=== PATIENT | male | born 1980 | race Caucasian/White ===

== ENCOUNTER 2017-01-14 11:21 | Observation (INO) | payer BC, OTHER ==
[2017-01-14] MEDS ORDERED: MORPHINE SULFATE 4 MG INJ IV ONE ×2 (11:49→13:17)
[2017-01-14] MEDS ORDERED: Zofran 4 MG/2 ML VIAL IV ONE (11:49)
[2017-01-14] MEDS ORDERED: Sodium Chloride 0.9% 1000 ML 1,000 ML IV STA ×2 (11:49→13:00)
--- NOTE | 2017-01-14 11:54 | ERPHSYRPT ---
- History of Present Illness Time Seen by Provider: 01/14/17 11:46 Exam Limitations: no limitations Patient Subjective Stated Complaint: Pt states "This has actually been going on for the past two weeks. I am having horrible indigestion and pain in the middle of my stomach. I have not been able to keep anything down and I have not taken any of my medicines." Triage Nursing Assessment: Pt alert and oriented X 3, skin pwd. Pt holding his abdomen, ambulates with a steady upright gait, able to speak in clear full sentences. Physician History: 36-year-old white male with history of high blood pressure, asthma, degenerative disc disease, States he had a headache that 2 weeks ago and then for the past 3 days he's been having epigastric pain states she's been unable to eat anything spitting everything up. No fevers. Past medical history includes high blood pressure, asthma, degenerative disc disease. Past surgical history right hand fracture Timing/Duration: day(s) (3 days) Activities at Onset: none Quality: burning Abdominal Pain Onset Location: epigastric Pain Radiation: no radiation Severity of Pain-Max: moderate Severity of Pain-Current: moderate Modifying Factors: Improves With: nothing Associated Symptoms: headache, nausea, vomiting, No back, No chest pain, No diaphoresis, No diarrhea, No fever/chills, No fatigue, No heartburn, No loss of appetite, No neck pain, No rash, No shortness of breath, No syncope Previous symptoms: no prior history Allergies/Adverse Reactions: NKA Allergy (Verified 06/07/15 12:44) NKA Home Medications: Lisinopril/Hydrochlorothiazide [Lisinopril-Hctz 20-12.5 mg Tab] 1 tab PO DAILY 09/25/13 [History] Omeprazole 20 MG [Prilosec 20 mg] 20 mg PO DAILY 09/25/13 [History] Atenolol mg PO 01/14/17 [History] Hx Tetanus, Diphtheria Vaccination/Date Given: Yes Hx Influenza Vaccination/Date Given: No Hx Pneumococcal Vaccination/Date Given: No Immunizations Up to Date: Yes - Review of Systems Constitutional: No Fever, No Chills Eyes: No Symptoms Ears, Nose, & Throat: No Symptoms Respiratory: No Cough, No Dyspnea Cardiac: No Chest Pain, No Edema, No Syncope Abdominal/Gastrointestinal: Abdominal Pain, Nausea, Vomiting, No Diarrhea, No Constipation, No Hematemesis, No Hematochezia, No Melena, No Dysphagia, No Appetite Changes Genitourinary Symptoms: No Dysuria Musculoskeletal: No Back Pain, No Neck Pain Skin: No Rash Neurological: No Dizziness, No Focal Weakness, No Sensory Changes Psychological: No Symptoms Endocrine: No Symptoms All Other Systems: Reviewed and Negative - Past Medical History Pertinent Past Medical History: Yes Neurological History: No Pertinent History ENT History: No Pertinent History Cardiac History: Hypertension Respiratory History: Asthma Endocrine Medical History: No Pertinent History Musculoskeletal History: Degenerative Disk Disease, Fractures GI Medical History: No Pertinent History History: No Pertinent History Psycho-Social History: Anxiety Male Reproductive Disorders: No Pertinent History Other Medical History: R HAND FX - Past Surgical History Past Surgical History: Yes Neuro Surgical History: No Pertinent History Cardiac: No Pertinent History Respiratory: No Pertinent History Gastrointestinal: Hernia Repair Genitourinary: No Pertinent History Musculoskeletal: Orthopedic Surgery Male Surgical History: No Pertinent History Other Surgical History: R HAND - Social History Smoking Status: Current every day smoker How long have you smoked: 20 years Exposure to second hand smoke: Yes Drug Use: none Patient Lives Alone: No - Nursing Vital Signs Nursing Vital Signs: Initial Vital Signs Temperature 97.9 F 01/14/17 11:38 Pulse Rate 126 H 01/14/17 11:38 Respiratory Rate 18 01/14/17 11:38 Blood Pressure 147/104 01/14/17 11:38 O2 Sat by Pulse Oximetry 98 01/14/17 11:38 Pain Scale Pain Intensity 8 - Physical Exam SpO2: 98 Oxygen Delivery: Room Air - Course Nursing assessment & vital signs reviewed: Yes EKG Interpreted by Me: RATE (110 bpm), Sinus Tach, NORMAL AXIS, Other (EKG: Sinus tachycardia, 1 10 bpm, normal axis, no acute ST or T wave changes) - CT Exams Abdomen/Pelvis CT Interpretation: Discussed w/radiologist (CT abdomen and pelvis with contrast impression: Fatty liver, mild fluid distended jejunum with wall thickening/ enhancement favoring enteritis. Normal appendix. Small fatty left inguinal hernia) Ordered Tests: Active Orders 24 hr Category Date Time Status EKG-ER Only STAT Care 01/14/17 11:49 Active IV Insertion STAT Care 01/14/17 11:49 Active ABDOMEN AND PELVIS W CONTRAST [CT] Stat Exams 01/14/17 13:18 Taken CHEST 1 VIEW (PORTABLE) Stat Exams 01/14/17 11:54 Completed AMYLASE Stat Lab 01/14/17 12:04 Completed CBC W DIFF Stat Lab 01/14/17 12:04 Completed CMP Stat Lab 01/14/17 12:04 Completed LIPASE Stat Lab 01/14/17 12:04 Completed TROPONIN Q3H Lab 01/14/17 12:04 Completed TROPONIN Q3H Lab 01/14/17 15:00 Ordered TROPONIN Q3H Lab 01/14/17 18:00 Ordered TROPONIN Q3H Lab 01/14/17 21:00 Ordered TROPONIN Q3H Lab 01/15/17 00:00 Ordered Medication Summary Discontinued Medications Generic Name Dose Route Start Last Admin Trade Name Freq PRN Reason Stop Dose Admin Sodium Chloride 1,000 mls @ 999 mls/hr 01/14/17 11:49 01/14/17 12:19 Sodium Chloride 0.9% 1000 Ml IV 01/14/17 12:49 999 mls/hr .Q1H1M STA Administration Sodium Chloride Confirm 01/14/17 12:16 Sodium Chloride 0.9% 1000 Ml Administered 01/14/17 12:17 Dose 1,000 mls @ ud .ROUTE .STK-MED ONE Sodium Chloride 1,000 mls @ 999 mls/hr 01/14/17 13:00 01/14/17 13:22 Sodium Chloride 0.9% 1000 Ml IV 01/14/17 14:00 999 mls/hr .Q1H1M STA Administration Sodium Chloride Confirm 01/14/17 13:03 Sodium Chloride 0.9% 1000 Ml Administered 01/14/17 13:04 Dose 1,000 mls @ ud .ROUTE .STK-MED ONE Morphine Sulfate 4 mg 01/14/17 11:49 01/14/17 12:20 Morphine Sulfate 4 Mg Inj IV 01/14/17 11:50 4 mg STAT ONE Administration Morphine Sulfate Confirm 01/14/17 12:16 Morphine Sulfate 4 Mg Inj Administered 01/14/17 12:17 Dose 4 mg .ROUTE .STK-MED ONE Morphine Sulfate 4 mg 01/14/17 13:17 01/14/17 13:21 Morphine Sulfate 4 Mg Inj IV 01/14/17 13:18 4 mg STAT ONE Administration Morphine Sulfate Confirm 01/14/17 13:20 Morphine Sulfate 4 Mg Inj Administered 01/14/17 13:21 Dose 4 mg .ROUTE .STK-MED ONE Ondansetron HCl 4 mg 01/14/17 11:49 01/14/17 12:20 Zofran 4 Mg/2 Ml Vial IV 01/14/17 11:50 4 mg STAT ONE Administration Ondansetron HCl Confirm 01/14/17 12:16 Zofran 4 Mg/2 Ml Vial Administered 01/14/17 12:17 Dose 4 mg .ROUTE .STK-MED ONE Pantoprazole Sodium 40 mg 01/14/17 14:05 Protonix 40 Mg Iv IV 01/14/17 14:06 STAT ONE Lab/Rad Data: Laboratory Result Diagrams 01/14/17 12:04 01/14/17 12:04 Laboratory Results 01/14/17 01/14/17 01/14/17 Range/Units 12:04 12:04 12:04 WBC 16.2 H (4.0-10.5) K/mm3 RBC 5.35 (4.1-5.6) M/mm3 Hgb 16.9 (12.5-18.0) gm/dl Hct 49.2 (42-50) % MCV 92.0 (78-100) fl MCH 31.6 (26-32) pg MCHC 34.3 (32-36) g/dl RDW 13.0 (11.5-14.0) % Plt Count 308 (150-450) K/mm3 MPV 10.2 H (6-9.5) fl Gran % 78.9 H (36.0-66.0) % Lymphocytes % 14.4 L (24.0-44.0) % Monocytes % 6.3 (0.0-12.0) % Eosinophils % 0.2 (0.00-5.0) % Basophils % 0.2 (0.0-0.4) % Basophils # 0.04 (0-0.4) Sodium 135 L (136-145) mEq/L Potassium 3.4 L (3.5-5.1) mEq/L Chloride 97 L (98-107) mEq/L Carbon Dioxide 23.4 (21-32) mEq/L Anion Gap 18.3 H (5-15) MEQ/L BUN 14 (9-20) mg/dL Creatinine 1.01 (0.55-1.30) mg/dl Estimated GFR > 60 ML/MIN Glucose 129 H (70-110) MG/DL Calcium 10.1 (8.5-10.1) mg/dL Total Bilirubin 0.50 (0.2-1.0) mg/dL AST 51 H (15-37) U/L ALT 81 H (12-78) U/L Alkaline Phosphatase 85 (46-116) U/L Troponin I < 0.017 (0.000-0.056) ng/ml Serum Total Protein 8.9 H (6.4-8.2) gm/dL Albumin 4.7 (3.4-5.0) g/dL Amylase 41 (25-115) U/L Lipase 164 (73-393) U/L - Progress Progress: improved Progress Note: 01/14/17 14:23 Case is discussed with Dr. Guzman will place on observation telemetry provide pain medication and antibiotics as well as IV fluids. - Departure Time of Disposition: 14:23 Departure Disposition: Observation (so we got better) Clinical Impression: Epigastric abdominal pain, Dehydration Vomiting Qualifiers: Vomiting type: unspecified Vomiting Intractability: non-intractable Nausea presence: with nausea Qualified Code(s): R11.2 - Nausea with vomiting, unspecified Condition: Fair Critical Care Time: No Referrals: COLT MARQUEZ MD [COURTESY STAFF] -
--- NOTE | 2017-01-14 12:15 | XRAY ---
Indication: Epigastric pain. Comparison: September 25, 2013. Portable apical lordotic chest again demonstrates normal heart, lungs, and bony thorax.
[2017-01-14] MEDS ORDERED: Sodium Chloride 0.9% 1000 ML 1,000 ML ONE ×2 (12:16→13:03)
[2017-01-14] MEDS ORDERED: MORPHINE SULFATE 4 MG INJ ONE ×2 (12:16→13:20)
[2017-01-14] MEDS ORDERED: Zofran 4 MG/2 ML VIAL ONE (12:16)
[2017-01-14 12:21] LABS: BASOPHIL % 0.2 % (0.0-0.4); Eosinophil % 0.2 % (0.00-5.0); Granulocytes % 78.9 % (36.0-66.0); Lymphocytes % 14.4 % (24.0-44.0); Mean Corpuscular Hemoglobin 31.6 pg (26-32); Mean Platelet Volume 10.2 fl (6-9.5); Monocytes % 6.3 % (0.0-12.0); Platelet Count 308 K/mm3 (150-450); Red Blood Count 5.35 M/mm3 (4.1-5.6); White Blood Count 16.2 K/mm3 (4.0-10.5)
[2017-01-14 12:49] LABS: ALBUMIN 4.7 g/dL (3.4-5.0); ALKALINE PHOSPHATASE 85 U/L (46-116); ANION GAP 18.3 MEQ/L (5-15); BLOOD UREA NITROGEN 14 mg/dL (9-20); CHLORIDE 97 mEq/L (98-107); Carbon Dioxide 23.4 mEq/L (21-32); Glucose 129 MG/DL (70-110); LIPASE 164 U/L (73-393); Potassium 3.4 mEq/L (3.5-5.1); SGOT/AST 51 U/L (15-37); SGPT/ALT 81 U/L (12-78); SODIUM 135 mEq/L (136-145); Total Protein 8.9 gm/dL (6.4-8.2)
[2017-01-14] MEDS ORDERED: PROTONIX 40 MG IV IV ONE ×2 (14:05→14:24)
--- NOTE | 2017-01-14 14:31 | XRAY ---
Indication: Nausea and vomiting. Heartburn. Multiple contiguous images obtained through the abdomen and pelvis using 80 cc Isovue 370 contrast only. Comparison: CT renal stone study June 06, 2016. Lung bases are clear. Heart is not enlarged. Noncontrasted stomach and bowel loops appear nonobstructed. Again the left abdomen jejunal bowel loops are mildly fluid distended with wall thickening/enhancement favoring enteritis. Scattered right hemicolon diverticulosis without diverticulitis. Normal appendix. No free fluid/air. Stable fatty liver. There is nonobstructing left lower renal micro-calculus. Remaining liver, gallbladder, pancreas, spleen, adrenal glands, kidneys, ureters, bladder, and aorta appear unremarkable. No pathologic retroperitoneal lymphadenopathy. Osseous structures intact. Interval enlarging moderate size fatty left inguinal hernia. Impression: 1. Again fluid distended jejunum with wall thickening/enhancement. Rule out enteritis. 2. Enlarging fatty left inguinal hernia. 3. Nonobstructing left renal micro-calculus, colonic diverticulosis, and fatty liver. CT DI 22.15
[2017-01-14] MEDS ORDERED: MORPHINE SULFATE 4 MG INJ IV PRN (15:14)
[2017-01-14] MEDS: Sodium Chloride 0.9% 1000 ML 1,000 ML IV SCH (15:24)
[2017-01-14] MEDS: Morphine PCA 1 MG/ML 30 ML IV PRN (17:16)
[2017-01-14] MEDS ORDERED: NON-FORMULARY ITEM (Lisinopril/Hydrochlorothiazide [Lisinopril-Hctz 20-12.5 Mg Tab] 1 TAB) PO SCH (22:00)
[2017-01-14] MEDS: hydroDIURIL 25 MG PO SCH (23:04)
[2017-01-14] MEDS: Zestril 20 MG PO SCH (23:05)
[2017-01-15] MEDS: Zofran 4 MG/2 ML VIAL IV PRN ×2 (00:35→13:35)
[2017-01-15] MEDS: Sodium Chloride 0.9% 1000 ML 1,000 ML IV SCH ×3 (00:46→19:54)
[2017-01-15] MEDS: Morphine PCA 1 MG/ML 30 ML IV PRN ×3 (05:40→17:33)
[2017-01-15 05:52] LABS: BASOPHIL % 0.3 % (0.0-0.4); Eosinophil % 1.1 % (0.00-5.0); Granulocytes % 65.1 % (36.0-66.0); Lymphocytes % 27.5 % (24.0-44.0); Mean Cell Volume 96.1 fl (78-100); Mean Corpuscular Hemoglobin 31.7 pg (26-32); Mean Platelet Volume 9.6 fl (6-9.5); Platelet Count 227 K/mm3 (150-450); Red Blood Count 4.39 M/mm3 (4.1-5.6); Red Cell Distribution Width 13.1 % (11.5-14.0); White Blood Count 10.2 K/mm3 (4.0-10.5)
[2017-01-15 06:11] LABS: ALBUMIN 3.8 g/dL (3.4-5.0); ALKALINE PHOSPHATASE 65 U/L (46-116); ANION GAP 10.6 MEQ/L (5-15); BLOOD UREA NITROGEN 8 mg/dL (9-20); CHLORIDE 103 mEq/L (98-107); Carbon Dioxide 28.5 mEq/L (21-32); Glucose 105 MG/DL (70-110); Potassium 3.6 mEq/L (3.5-5.1); SGOT/AST 32 U/L (15-37); SGPT/ALT 68 U/L (12-78); SODIUM 139 mEq/L (136-145); Total Protein 7.2 gm/dL (6.4-8.2)
--- NOTE | 2017-01-15 08:57 | PCM.HP ---
History of Present Illness - Chief Complaint Chief Complaint: epigastric abdominal pain History of Present Illness: is a 36 year old male pt seen in yesterday for 2-3 d of epigastric burning, 7/10, with vomiting and diarrhea. Also c/o BURT x 2 weeks. Was having lower chest pain radiating to back with palpitations and sob so was admitted through the ER, where EKG was nonacute and troponin was negative. He has not had any diarrhea since admission. His pain is 3/10 currently and he is on morphine [employer]. His pain is worse wiht any po intake. Never had EGD. He has, however, had some chronic stomach issues. He tells me he starts sweating, his head starts hurting, and his stomach starts hurting. He does get flushed as well. - Review of Systems Constitutional: Fever, No Weight Loss Respiratory: Cough (resolved in past few weeks), Short Of Breath Cardiac: Chest Pain Abdominal/Gastrointestinal: Abdominal Pain, Nausea, Vomiting, Diarrhea All Other Systems: Reviewed and Negative Medications & Allergies Home Medications: Home Medication List Lisinopril/Hydrochlorothiazide [Lisinopril-Hctz 20-12.5 mg Tab] 1 tab PO BID [History Confirmed 01/14/17] Omeprazole 20 MG [Prilosec 20 mg] 20 mg PO DAILY 09/25/13 [History Confirmed ] Diazepam [Valium] 10 mg PO TIDPRN 01/14/17 [History Confirmed 01/14/17] Allergies/Adverse Reactions: Allergies Allergy/AdvReac Type Severity Reaction Status Date / Time NKA Allergy Verified 01/14/17 15:13 - Past Medical History Past Medical History: Yes Neurological History: No Pertinent History ENT History: No Pertinent History Cardiac History: Hypertension Respiratory History: No Pertinent History Endocrine Medical History: No Pertinent History Musculoskelatal History: Degenerative Disk Disease, Fractures GI Medical History: No Pertinent History History: No Pertinent History Pyscho-Social History: Anxiety Male Reproductive Disorders: No Pertinent History Comment: R HAND FX - Past Surgical History Past Surgical History: Yes Neuro Surgical History: No Pertinent History Cardiac History: No Pertinent History Respiratory Surgery: No Pertinent History GI Surgical History: Hernia Repair Genitourinary Surgical Hx: No Pertinent History Musculskeletal Surgical Hx: Orthopedic Surgery Male Surgical History: No Pertinent History Other Surgical History: R HAND - Social History Smoking Status: Current every day smoker How long have you smoked: 20 years Exposure to second hand smoke: Yes Alcohol: Occasionally Drug Use: none - Physical Exam Vital Signs: Vital Signs - 24 hr Temp Pulse Resp BP Pulse Ox 01/15/17 08:10 99 01/15/17 07:51 97 01/15/17 07:44 87 L 01/15/17 07:26 98.2 F 104 H 18 120/79 92 L 01/15/17 05:40 95 01/15/17 05:16 95 01/15/17 04:00 97.9 F 104 H 16 144/84 96 01/15/17 01:16 98 01/15/17 00:00 97.8 F 101 H 16 130/77 98 01/14/17 21:16 96 01/14/17 20:00 98.3 F 84 16 121/69 96 01/14/17 15:52 98.2 F 95 H 18 138/88 97 01/14/17 15:32 98.2 F 95 H 18 138/88 97 01/14/17 14:49 98.1 F 102 H 18 142/64 94 L 01/14/17 14:24 98 01/14/17 13:25 106 H 16 148/88 94 L 01/14/17 12:15 120 H 18 118/91 97 01/14/17 11:38 97.9 F 126 H 18 147/104 98 Results - Labs Lab/Micro Results: Lab Results-Last 24 Hours 01/14/17 01/14/17 01/14/17 Range/Units 15:13 18:06 21:15 WBC (4.0-10.5) K/mm3 RBC (4.1-5.6) M/mm3 Hgb (12.5-18.0) gm/dl Hct (42-50) % MCV (78-100) fl MCH (26-32) pg MCHC (32-36) g/dl RDW (11.5-14.0) % Plt Count (150-450) K/mm3 MPV (6-9.5) fl Gran % (36.0-66.0) % Lymphocytes % (24.0-44.0) % Monocytes % (0.0-12.0) % Eosinophils % (0.00-5.0) % Basophils % (0.0-0.4) % Basophils # (0-0.4) Sodium (136-145) mEq/L Potassium (3.5-5.1) mEq/L Chloride (98-107) mEq/L Carbon Dioxide (21-32) mEq/L Anion Gap (5-15) MEQ/L BUN (9-20) mg/dL Creatinine (0.55-1.30) mg/dl Estimated GFR ML/MIN Glucose (70-110) MG/DL Calcium (8.5-10.1) mg/dL Total Bilirubin (0.2-1.0) mg/dL AST (15-37) U/L ALT (12-78) U/L Alkaline Phosphatase (46-116) U/L Troponin I < 0.017 < 0.017 < 0.017 (0.000-0.056) ng/ml Serum Total Protein (6.4-8.2) gm/dL Albumin (3.4-5.0) g/dL 01/15/17 01/15/17 01/15/17 Range/Units 00:30 05:10 05:10 WBC 10.2 (4.0-10.5) K/mm3 RBC 4.39 (4.1-5.6) M/mm3 Hgb 13.9 (12.5-18.0) gm/dl Hct 42.2 (42-50) % MCV 96.1 (78-100) fl MCH 31.7 (26-32) pg MCHC 32.9 (32-36) g/dl RDW 13.1 (11.5-14.0) % Plt Count 227 (150-450) K/mm3 MPV 9.6 H (6-9.5) fl Gran % 65.1 (36.0-66.0) % Lymphocytes % 27.5 (24.0-44.0) % Monocytes % 6.0 (0.0-12.0) % Eosinophils % 1.1 (0.00-5.0) % Basophils % 0.3 (0.0-0.4) % Basophils # 0.03 (0-0.4) Sodium 139 (136-145) mEq/L Potassium 3.6 (3.5-5.1) mEq/L Chloride 103 (98-107) mEq/L Carbon Dioxide 28.5 (21-32) mEq/L Anion Gap 10.6 (5-15) MEQ/L BUN 8 L (9-20) mg/dL Creatinine 0.83 (0.55-1.30) mg/dl Estimated GFR > 60 ML/MIN Glucose 105 (70-110) MG/DL Calcium 8.5 (8.5-10.1) mg/dL Total Bilirubin 0.30 (0.2-1.0) mg/dL AST 32 (15-37) U/L ALT 68 (12-78) U/L Alkaline Phosphatase 65 (46-116) U/L Troponin I < 0.017 (0.000-0.056) ng/ml Serum Total Protein 7.2 (6.4-8.2) gm/dL Albumin 3.8 (3.4-5.0) g/dL - Other Procedures and Tests Respiratory Therapy 01/15/17 07:42 Oxygen NASAL CANNULA 2 lpm Assessment/Plan (1) Epigastric abdominal pain Current Visit: Yes Status: Acute Assessment & Plan: Enteritis on CT. will add carafate QID. Pain is better; if persistent still consider EGD. Code(s): R10.13 - EPIGASTRIC PAIN (2) Vomiting Current Visit: Yes Status: Acute Qualifiers: Vomiting type: unspecified Vomiting Intractability: non-intractable Nausea presence: with nausea Qualified Code(s): R11.2 - Nausea with vomiting, unspecified Code(s): R11.10 - VOMITING, UNSPECIFIED (3) Chest pain Current Visit: Yes Status: Acute Qualifiers: Chest pain type: other chest pain Qualified Code(s): R07.89 - Other chest pain; R07.8 - Other chest pain Assessment & Plan: His mom and dad both had MIs in their 50s - would consider having him get a treadmill test outpatient after his stomach issues resolve. Code(s): R07.9 - CHEST PAIN, UNSPECIFIED (4) Diarrhea Current Visit: Yes Status: Acute Qualifiers: Diarrhea type: unspecified type Qualified Code(s): R19.7 - Diarrhea, unspecified Assessment & Plan: None since admission, but he has not been eating much. Less likely to be carcinoid syndrome, but with his flushing and stomach issues going temporally related, will start 24 hour urine for 5-HIAA. Code(s): R19.7 - DIARRHEA, UNSPECIFIED (5) Insomnia Current Visit: Yes Status: Acute Qualifiers: Insomnia type: primary Qualified Code(s): F51.01 - Primary insomnia Assessment & Plan: add ativan at hs while in hospital. Code(s): G47.00 - INSOMNIA, UNSPECIFIED
[2017-01-15] MEDS: hydroDIURIL 25 MG PO SCH ×2 (09:48→21:49)
[2017-01-15] MEDS: Zestril 20 MG PO SCH ×2 (09:48→21:49)
[2017-01-15] MEDS ORDERED: FLUCELVAX QUAD 2017-2018 SYR IM ONE (10:00)
[2017-01-15] MEDS: Carafate 1 GM PO SCH ×3 (10:56→21:49)
[2017-01-15] MEDS: Ativan 1 MG PO SCH (21:49)
[2017-01-16] MEDS: Sodium Chloride 0.9% 1000 ML 1,000 ML IV SCH ×2 (05:31→17:45)
[2017-01-16] MEDS: Morphine PCA 1 MG/ML 30 ML IV PRN (06:46)
[2017-01-16] MEDS: Carafate 1 GM PO SCH ×4 (08:12→22:43)
--- NOTE | 2017-01-16 09:07 | PCM.DS ---
Discharge Summary Date of Admission: 01/14/17 15:01 Admitting Physician: SVETA NIXON Primary Care Provider: ARIEL MIDDLETON AMEYA Allergies Allergies NKA Allergy (Verified 01/14/17 15:13) [facility] Hospital Summary - Hospital Course Hospital Course: His abd pain is better, now 4/10 and intermittent. not noticeably worse with eating. Did vomit after supper (chicken broth). Hungry this morning. no diarrhea today or yesterday. Slept better last night. - Vitals & Intake/Output Vital Signs: Vital Signs Temperature 97.7 F 01/16/17 07:19 Pulse Rate 80 01/16/17 07:19 Respiratory Rate 18 01/16/17 07:19 Blood Pressure 125/77 01/16/17 07:19 O2 Sat by Pulse Oximetry 98 01/16/17 07:19 Intake & Output: Intake & Output 01/13/17 01/14/17 01/15/17 01/16/17 11:59 11:59 11:59 11:59 Intake Total 1600 5326 Output Total 500 Balance 1600 4826 Weight 89.018 kg - Lab Result Diagrams: 01/15/17 05:10 01/15/17 05:10 - Procedures and Test Procedures and Tests throughout Hospitalization: Therapy Orders & Screens 01/15/17 07:42 Oxygen NASAL CANNULA 2 lpm Comment: Diagnosis: epigastric abdominal pain Discharge Exam General Appearance: no apparent distress, alert Neurologic Exam: oriented x 3, cooperative Skin Exam: normal color, warm, dry Respiratory Exam: normal breath sounds, lungs clear, No crackles/rales, No rhonchi, No wheezing Cardiovascular Exam: regular rate/rhythm, normal heart sounds, No murmur Gastrointestinal/Abdomen Exam: soft, normal bowel sounds, No tenderness, No distention Final Diagnosis/Problem List - Final Discharge Diagnosis/Problem (1) Epigastric abdominal pain Current Visit: Yes Status: Acute Assessment & Plan: Much better. He is on carafate. If he tolerates po, would send him home on carafate and PPI and have him f/u in office in 1-2 weeks. If pain is persistent at all, would do EGD; however this may just be due to enteritis and if resolves no further workup is needed. (2) Vomiting Current Visit: Yes Status: Resolved (3) Chest pain Current Visit: Yes Status: Acute (4) Diarrhea Current Visit: Yes Status: Resolved (5) Insomnia Current Visit: Yes Status: Resolved - Discharge Disposition: Home, Self-Care Condition: Fair Prescriptions: New Sucralfate 1 gm [Carafate 1 GM] 1 g PO ACHS #28 tablet Omeprazole 20 mg PO DAILY #30 tablet.dr Continue Lisinopril/Hydrochlorothiazide [Lisinopril-Hctz 20-12.5 mg Tab] 1 tab PO BID Omeprazole 20 MG [Prilosec 20 mg] 20 mg PO DAILY Diazepam [Valium] 10 mg PO TIDPRN Follow up with: COLT MARQUEZ MD [COURTESY STAFF] -
[2017-01-16] MEDS: Zofran 4 MG/2 ML VIAL IV PRN ×2 (10:24→17:45)
[2017-01-16] MEDS: Zestril 20 MG PO SCH ×2 (10:24→22:43)
[2017-01-16] MEDS: hydroDIURIL 25 MG PO SCH ×2 (10:24→22:44)
[2017-01-16 14:57] LABS: TOTAL VOLUME 4050
[2017-01-16] MEDS ORDERED: Lactated Ringers 500 ML IV ONE (17:52)
[2017-01-16] MEDS: Ativan 1 MG PO SCH (22:44)
[2017-01-17 05:28] LABS: BASOPHIL % 0.6 % (0.0-0.4); Eosinophil % 3.3 % (0.00-5.0); Granulocytes % 51.2 % (36.0-66.0); Lymphocytes % 36.7 % (24.0-44.0); Mean Cell Volume 94.1 fl (78-100); Mean Platelet Volume 9.6 fl (6-9.5); Monocytes % 8.2 % (0.0-12.0); Platelet Count 207 K/mm3 (150-450); Red Blood Count 3.87 M/mm3 (4.1-5.6); Red Cell Distribution Width 12.2 % (11.5-14.0); White Blood Count 6.5 K/mm3 (4.0-10.5)
[2017-01-17 05:32] LABS: Mean Corpuscular Hemoglobin 31.7 pg (26-32)
[2017-01-17 05:41] LABS: ANION GAP 10.2 MEQ/L (5-15); BLOOD UREA NITROGEN 7 mg/dL (9-20); CHLORIDE 103 mEq/L (98-107); Carbon Dioxide 31.8 mEq/L (21-32); Glucose 101 MG/DL (70-110); Potassium 3.5 mEq/L (3.5-5.1); SODIUM 142 mEq/L (136-145)
[2017-01-17] MEDS: Morphine PCA 1 MG/ML 30 ML IV PRN ×2 (05:50→08:16)
[2017-01-17] MEDS: Sodium Chloride 0.9% 1000 ML 1,000 ML IV SCH (05:53)
[2017-01-17 07:07] VITALS: BP 115/67; PULSE 87
--- NOTE | 2017-01-17 07:23 | PCM.DCORD ---
- Discharge Discharge Date: 01/17/17 Disposition: Home, Self-Care Condition: Good Prescriptions: New Sucralfate 1 gm [Carafate 1 GM] 1 g PO ACHS #28 tablet Omeprazole 20 mg PO DAILY #30 tablet.dr Continue Lisinopril/Hydrochlorothiazide [Lisinopril-Hctz 20-12.5 mg Tab] 1 tab PO BID Omeprazole 20 MG [Prilosec 20 mg] 20 mg PO DAILY Diazepam [Valium] 10 mg PO TIDPRN Follow up with: SVETA NIXON [ACTIVE STAFF] - 1 Week
--- NOTE | 2017-01-17 07:24 | PCM.DS ---
Discharge Summary Date of Admission: 01/14/17 15:01 Date of Discharge: 01/17/17 Admitting Physician: SVETA NIXON Primary Care Provider: ARIEL MIDDLETON AMEYA Allergies Allergies NKA Allergy (Verified 01/14/17 15:13) [facility] Summary - Hospital Course Hospital Course: Has chronic abdominal pains of unclear etiology that are intermittent and presented with acute vomiting and severe abdonial pains found to have gastroenteritis treated with pain and nausea control and iv fluids. On evaluation on 01/17 he had not vomitted in several hours he stated the pain had resolved and was feeling better. He had evaluation for urine 5-HIAA with results pending at time of discharge and will have outpatient f/u to consider egd and further testing rule out inflammatory bowel disease. Today feeling much better however and will be discharged to continue home meds. - Vitals & Intake/Output Vital Signs: Vital Signs Temperature 98.1 F 01/17/17 07:07 Pulse Rate 87 01/17/17 07:07 Respiratory Rate 20 01/17/17 07:07 Blood Pressure 115/67 01/17/17 07:07 O2 Sat by Pulse Oximetry 95 01/17/17 07:07 Intake & Output: Intake & Output 01/14/17 01/15/17 01/16/17 01/17/17 11:59 11:59 11:59 11:59 Intake Total 1600 5566 3274 Output Total 900 360 Balance 1600 4666 2914 Weight 89.018 kg - Lab Result Diagrams: 01/17/17 05:20 01/17/17 05:20 Lab Results-Last 24 Hrs: Lab Results-Last 24 Hours 01/16/17 01/16/17 01/17/17 Range/Units 11:10 11:13 05:20 WBC 6.5 (4.0-10.5) K/mm3 RBC 3.87 L (4.1-5.6) M/mm3 Hgb 12.3 L (12.5-18.0) gm/dl Hct 36.4 L (42-50) % MCV 94.1 (78-100) fl MCH 31.7 (26-32) pg MCHC 33.8 (32-36) g/dl RDW 12.2 (11.5-14.0) % Plt Count 207 (150-450) K/mm3 MPV 9.6 H (6-9.5) fl Gran % 51.2 (36.0-66.0) % Lymphocytes % 36.7 (24.0-44.0) % Monocytes % 8.2 (0.0-12.0) % Eosinophils % 3.3 (0.00-5.0) % Basophils % 0.6 (0.0-0.4) % Basophils # 0.04 (0-0.4) Sodium (136-145) mEq/L Potassium (3.5-5.1) mEq/L Chloride (98-107) mEq/L Carbon Dioxide (21-32) mEq/L Anion Gap (5-15) MEQ/L BUN (9-20) mg/dL Creatinine (0.55-1.30) mg/dl Estimated GFR ML/MIN Glucose (70-110) MG/DL Calcium (8.5-10.1) mg/dL Urine Total Volume Pending Cancelled Urine Creatinine Pending Cancelled Ur Creatinine mg/24hr Pending Cancelled U Collection Duration Pending Cancelled Urine 5-HIAA, Quant Pending Cancelled 01/17/17 Range/Units 05:20 WBC (4.0-10.5) K/mm3 RBC (4.1-5.6) M/mm3 Hgb (12.5-18.0) gm/dl Hct (42-50) % MCV (78-100) fl MCH (26-32) pg MCHC (32-36) g/dl RDW (11.5-14.0) % Plt Count (150-450) K/mm3 MPV (6-9.5) fl Gran % (36.0-66.0) % Lymphocytes % (24.0-44.0) % Monocytes % (0.0-12.0) % Eosinophils % (0.00-5.0) % Basophils % (0.0-0.4) % Basophils # (0-0.4) Sodium 142 (136-145) mEq/L Potassium 3.5 (3.5-5.1) mEq/L Chloride 103 (98-107) mEq/L Carbon Dioxide 31.8 (21-32) mEq/L Anion Gap 10.2 (5-15) MEQ/L BUN 7 L (9-20) mg/dL Creatinine 0.85 (0.55-1.30) mg/dl Estimated GFR > 60 ML/MIN Glucose 101 (70-110) MG/DL Calcium 8.9 (8.5-10.1) mg/dL Urine Total Volume Urine Creatinine Ur Creatinine mg/24hr U Collection Duration Urine 5-HIAA, Quant - Procedures and Test Procedures and Tests throughout Hospitalization: Therapy Orders & Screens 01/15/17 07:42 Oxygen NASAL CANNULA 2 lpm Comment: Diagnosis: epigastric abdominal pain Discharge Exam General Appearance: no apparent distress, alert Neurologic Exam: alert, oriented x 3, cooperative, normal mood/affect, nml cerebellar function, sensation nml, No motor deficits Skin Exam: normal color, warm, dry Eye Exam: PERRL, EOMI, eyes nml inspection Ears, Nose, Throat Exam: normal ENT inspection, pharynx normal, moist mucous membranes Neck Exam: normal inspection, non-tender, supple, full range of motion Respiratory Exam: normal breath sounds, lungs clear, No respiratory distress Cardiovascular Exam: regular rate/rhythm, normal heart sounds Gastrointestinal/Abdomen Exam: soft, No tenderness, No mass Extremity Exam: normal inspection, normal range of motion Back Exam: normal inspection, normal range of motion, No CVA tenderness, No vertebral tenderness Male Genitalia Exam: deferred Rectal Exam: deferred Final Diagnosis/Problem List - Final Discharge Diagnosis/Problem (1) Gastroenteritis Status: Acute (2) Dehydration Status: Acute (3) Chest pain, rule out acute myocardial infarction Status: Ruled-out (4) Essential (primary) hypertension Status: Chronic - Discharge Disposition: Home, Self-Care Condition: Good Prescriptions: New Sucralfate 1 gm [Carafate 1 GM] 1 g PO ACHS #28 tablet Omeprazole 20 mg PO DAILY #30 tablet. Continue Lisinopril/Hydrochlorothiazide [Lisinopril-Hctz 20-12.5 mg Tab] 1 tab PO BID Omeprazole 20 MG [Prilosec 20 mg] 20 mg PO DAILY Diazepam [Valium] 10 mg PO TIDPRN Instructions: Abdominal Pain-Adult Follow up with: SVETA NIXON [ACTIVE STAFF] - 01/28/17 10:45 am Forms: Discharge Instructions, Patient Portal Information
[2017-01-17] MEDS: Carafate 1 GM PO SCH (07:47)
[2017-01-17 08:18] VITALS: O2SAT 97
[2017-01-17] MEDS: hydroDIURIL 25 MG PO SCH (09:39)
[2017-01-17] MEDS: Zestril 20 MG PO SCH (09:40)
[2017-01-20 15:02] LABS: 5-HIAA QNT 24HR URINE MASS/VOL 0.8 mg/L; U CREATININE G 24 HR 1.82 g/24 h (1.50-2.00)
[2017-01-20 18:07] LABS: 24 HR SPEC COLL VALIDATION INT See Result Note:; 5HIAA QNT 24HR URINE MASS/TIME 3.2 mg/d (0.7-8.2)
== END 2017-01-17 10:01 | disposition home or self-care (01) ==
LOC: ED 11:21 → MED SURG 15:01
PROVIDERS: ADMIT Family Medicine; ATTEND Family Medicine
DX: R10.13 Epigastric pain (principal); K52.9 Noninfective gastroenteritis and colitis, unspecified; R11.10 Vomiting, unspecified; R07.9 Chest pain, unspecified; G47.00 Insomnia, unspecified; E86.0 Dehydration; I10 Essential (primary) hypertension; R51 Headache
CPT/HCPCS: 36000; 36415; 71010; 74177; 80048; 80053; 82150; 83497; 83690; 84484; 85025; 93005; 93268; 94760; 94762; 96360; 96361; 96374; 96375; 96376; 99285; G0008; G0378; J2270; J2405; 90682; A9270-GY

== ENCOUNTER 2017-01-29 06:04 | Day surgery (SDC) | payer OTHER ==
[~2017-01-29 06:04] MED LIST: Lactated Ringers 1,000 ML IV SCH
[2017-01-29] MEDS ORDERED: DIPRIVAN 200 MG/20 ML IV ONE (06:05)
[2017-01-29] MEDS ORDERED: Ketamine HCl 50 MG/ML IJ ONE (06:05)
[2017-01-29] MEDS ORDERED: Lactated Ringers 1,000 ML IV ONE (07:04)
--- NOTE | 2017-01-29 09:40 | OP ---
SURGERY DATE/TIME: 01/29/2017 0808 PREOPERATIVE DIAGNOSES: 1) Dysphagia. 2) Epigastric abdominal pain. POSTOPERATIVE DIAGNOSIS: Normal EGD. PROCEDURE: EGD. SURGEON: Marco Samayoa M.D. ANESTHESIA: MAC by Cecilio Manriquez CRNA. ESTIMATED BLOOD LOSS: None. SPECIMENS: None. DESCRIPTION OF PROCEDURE: After informed written consent was obtained, the patient was taken to the endoscopy suite. He underwent monitored anesthesia and a bite block was inserted. The endoscope was inserted into the posterior oropharynx and under direct visualization the esophagus was traversed. The esophageal mucosa had a normal mucosal appearance free of any lesions or defects. There were no obvious strictures. Upon entering the stomach the gastric mucosa had a normal rugated appearance free of any lesions or defects. The pylorus was traversed and the first and second portions of the duodenum were within normal limits. Upon withdrawal, the entire gastric mucosal surface appeared normal free of lesion or defects. Gastroesophageal junction and esophagus all again were within normal limits upon careful inspection at the time of withdrawal. The scope was removed and the patient was transferred to the recovery room in good condition.
[2017-01-29 09:42] VITALS: BP 118/73; PULSE 82; O2SAT 98
== END 2017-01-29 09:48 | disposition home or self-care (01) ==
LOC: SDC 06:04
PROVIDERS: ATTEND Family Medicine
PROC: 0DJ08ZZ Inspection of Upper Intestinal Tract, Via Natural or Artificial Opening Endoscopic (ICD-10-PCS; principal; 2017-01-29)
DX: R13.10 Dysphagia, unspecified (principal); R10.13 Epigastric pain; I10 Essential (primary) hypertension; F41.9 Anxiety disorder, unspecified
CPT/HCPCS: 00740; J2704

== ENCOUNTER 2017-02-20 20:47 | Observation (INO) | payer BC, OTHER ==
[2017-02-20] MEDS ORDERED: Phenergan 25 MG INJ IM ONE (21:11)
[2017-02-20] MEDS ORDERED: Pepcid 20 MG VIAL IV ONE ×2 (21:11→21:38)
[2017-02-20] MEDS ORDERED: Zofran 4 MG/2 ML VIAL IV ONE (21:11)
[2017-02-20] MEDS ORDERED: Reglan 10 MG/2 ML IV ONE (21:11)
[2017-02-20] MEDS ORDERED: BENADRYL 50 MG/ML IV ONE (21:11)
[2017-02-20] MEDS ORDERED: Sodium Chloride 0.9% 1000 ML 1,000 ML IV STA ×2 (21:11→21:40)
--- NOTE | 2017-02-20 21:11 | ERPHSYRPT ---
- History of Present Illness Time Seen by Provider: 02/20/17 21:07 Historian: patient Exam Limitations: no limitations Patient Subjective Stated Complaint: vomiting x 3 days Triage Nursing Assessment: actively vomiting on arrival. was drinking water on arrival.. told to hold on the water at this time. states abdomen sore from vomiting Physician History: pt reported prior episode last month worked up in ER here with CT and was on ab and got better but did not have eval with PCP f/u and now recurs same - no real abd pain just sore from wretching and zofran not working at home; Timing/Duration: day(s) Activities at Onset: none Quality: aching Pain Radiation: no radiation Severity of Pain-Max: mild Severity of Pain-Current: mild Associated Symptoms: nausea, vomiting Previous symptoms: same symptoms as today, recently seen Allergies/Adverse Reactions: NKA Allergy (Mild, Verified 02/20/17 22:42) NKA Home Medications: Lisinopril/Hydrochlorothiazide [Lisinopril-Hctz 20-12.5 mg Tab] 1 tab PO BID [History] Omeprazole 20 MG [Prilosec 20 mg] 20 mg PO Q4-6HPRN PRN 09/25/13 [History] Diazepam [Valium] 10 mg PO TIDPRN 01/14/17 [History] Ondansetron HCl 4 mg/2 ml [Zofran 4 MG/2 ML VIAL] 4 mg IV 02/20/17 [History] Hx Tetanus, Diphtheria Vaccination/Date Given: Yes Hx Influenza Vaccination/Date Given: No Hx Pneumococcal Vaccination/Date Given: No Immunizations Up to Date: Yes - Review of Systems Constitutional: No Fever, No Chills Eyes: No Symptoms Ears, Nose, & Throat: No Symptoms Respiratory: No Cough, No Dyspnea Cardiac: No Chest Pain, No Edema, No Syncope Abdominal/Gastrointestinal: Nausea, Vomiting, No Abdominal Pain, No Diarrhea Genitourinary Symptoms: No Dysuria Musculoskeletal: No Back Pain, No Neck Pain Skin: No Rash Neurological: No Dizziness, No Focal Weakness, No Sensory Changes Psychological: No Symptoms Endocrine: No Symptoms All Other Systems: Reviewed and Negative - Past Medical History Pertinent Past Medical History: Yes Neurological History: No Pertinent History ENT History: No Pertinent History Cardiac History: Hypertension, Other Respiratory History: No Pertinent History Endocrine Medical History: No Pertinent History Musculoskeletal History: Degenerative Disk Disease, Fractures GI Medical History: GERD History: No Pertinent History Psycho-Social History: Anxiety Male Reproductive Disorders: No Pertinent History Other Medical History: R HAND FX. recent tachycardia and vomiting/ dificult swallowing - Past Surgical History Past Surgical History: Yes Neuro Surgical History: No Pertinent History Cardiac: No Pertinent History Respiratory: No Pertinent History Gastrointestinal: Hernia Repair Genitourinary: No Pertinent History Musculoskeletal: Orthopedic Surgery Male Surgical History: No Pertinent History Other Surgical History: R HAND - Social History Smoking Status: Current every day smoker How long have you smoked: 20 years Exposure to second hand smoke: No Drug Use: none Patient Lives Alone: No - Nursing Vital Signs Nursing Vital Signs: Initial Vital Signs Temperature 98.5 F 02/20/17 20:55 Pulse Rate 130 H 02/20/17 20:55 Respiratory Rate 24 02/20/17 20:55 Blood Pressure 148/106 02/20/17 20:55 O2 Sat by Pulse Oximetry 98 02/20/17 20:55 Pain Scale Pain Intensity 5 - Physical Exam General Appearance: no apparent distress, alert Eye Exam: PERRL/EOMI, eyes nml inspection Ears, Nose, Throat Exam: normal ENT inspection, pharynx normal, moist mucous membranes Neck Exam: normal inspection, non-tender, supple, full range of motion Respiratory Exam: normal breath sounds, lungs clear, No respiratory distress Cardiovascular Exam: regular rate/rhythm, normal heart sounds Gastrointestinal/Abdomen Exam: soft, No tenderness, No mass Back Exam: normal inspection, normal range of motion, No CVA tenderness, No vertebral tenderness Extremity Exam: normal inspection, normal range of motion, pelvis stable Neurologic Exam: alert, oriented x 3, cooperative, normal mood/affect, nml cerebellar function, sensation nml, No motor deficits Skin Exam: normal color, warm, dry SpO2: 98 Oxygen Delivery: Room Air - Course Nursing assessment & vital signs reviewed: Yes EKG Interpreted by Me: Sinus Tach, NORMAL AXIS, prolonged QT interval, Non- specific ST Changes, Other (flipped t waves diffuse since last visit no chest pain) Ordered Tests: Active Orders 24 hr Category Date Time 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 Care 02/20/17 21:45 Active Clean Catch Urine Specimen STAT Care 02/20/17 21:11 Active EKG-ER Only STAT Care 02/20/17 21:11 Active IV Insertion STAT Care 02/20/17 21:11 Active ABDOMEN AND PELVIS W/0 CONTRAS [CT] Stat Exams 02/20/17 22:16 Taken AMYLASE Stat Lab 02/20/17 21:30 Completed CBC W DIFF Stat Lab 02/20/17 21:30 Completed CMP Stat Lab 02/20/17 21:30 Completed CULTURE,URINE Stat Lab 02/20/17 23:56 Received LIPASE Stat Lab 02/20/17 21:30 Completed Lactic Acid Stat Lab 02/20/17 21:11 Completed Lactic Acid Stat Lab 02/20/17 21:45 Ordered Lactic Acid Stat Lab 02/20/17 23:37 Completed TROPONIN Q3H Lab 02/20/17 21:30 Completed TROPONIN Q3H Lab 02/21/17 00:08 Completed TROPONIN Q3H Lab 02/21/17 03:15 Ordered TROPONIN Q3H Lab 02/21/17 06:15 Ordered TROPONIN Q3H Lab 02/21/17 09:15 Ordered UA W/ MICROSCOPIC Stat Lab 02/20/17 23:56 Completed Medication Summary Discontinued Medications Generic Name Dose Route Start Last Admin Trade Name Freq PRN Reason Stop Dose Admin Diphenhydramine HCl 25 mg 02/20/17 21:11 02/20/17 21:44 Benadryl 50 Mg/Ml IV 02/20/17 21:12 25 mg STAT ONE Administration Diphenhydramine HCl Confirm 02/20/17 21:37 Benadryl 50 Mg/Ml Administered 02/20/17 21:38 Dose 50 mg .ROUTE .STK-MED ONE Famotidine 20 mg 02/20/17 21:11 02/20/17 21:45 Pepcid 20 Mg Vial IV 02/20/17 21:12 20 mg STAT ONE Administration Famotidine Confirm 02/20/17 21:38 Pepcid 20 Mg Vial Administered 02/20/17 21:39 Dose 20 mg IV .STK-MED ONE Hydromorphone HCl 1 mg 02/20/17 22:22 02/20/17 22:54 Hydromorphone 1 Mg/Ml Ampule IV 02/20/17 22:23 1 mg STAT ONE Administration Hydromorphone HCl Confirm 02/20/17 22:33 Hydromorphone 1 Mg/Ml Ampule Administered 02/20/17 22:34 Dose 1 mg .ROUTE .STK-MED ONE Sodium Chloride 1,000 mls @ 999 mls/hr 02/20/17 21:11 02/20/17 21:46 Sodium Chloride 0.9% 1000 Ml IV 02/20/17 22:11 999 mls/hr .Q1H1M STA Administration Sodium Chloride Confirm 02/20/17 21:38 Sodium Chloride 0.9% 1000 Ml Administered 02/20/17 21:39 Dose 1,000 mls @ ud .ROUTE .STK-MED ONE Sodium Chloride 1,000 mls @ 999 mls/hr 02/20/17 21:40 02/20/17 23:26 Sodium Chloride 0.9% 1000 Ml IV 02/20/17 22:40 999 mls/hr .Q1H1M STA Administration Sodium Chloride Confirm 02/20/17 21:48 Sodium Chloride 0.9% 1000 Ml Administered 02/20/17 21:49 Dose 1,000 mls @ ud .ROUTE .STK-MED ONE Metronidazole 500 mg in 100 mls @ 200 mls/hr 02/20/17 22:15 02/20/17 23:31 Flagyl 500 Mg Ivpb IV 02/20/17 22:44 200 mls/hr STAT STA Administration Meropenem 1 g/ Sodium Chloride 100 mls @ 200 mls/hr 02/20/17 22:15 02/20/17 22:47 IV 02/20/17 22:44 200 mls/hr STAT ONE Administration Sodium Chloride Confirm 02/20/17 22:25 Sodium Chloride 0.9% 100 Ml Ivpb Administered 02/20/17 22:26 Dose 100 mls @ ud IV .STK-MED ONE Metronidazole Confirm 02/20/17 23:02 Flagyl 500 Mg Ivpb Administered 02/20/17 23:03 Dose 500 mg in 100 mls @ ud IV .STK-MED ONE Meropenem Confirm 02/20/17 22:25 Merrem 1 Gm Administered 02/20/17 22:26 Dose 1 g IV .STK-MED ONE Metoclopramide HCl 10 mg 02/20/17 21:11 02/20/17 21:45 Reglan 10 Mg/2 Ml IV 02/20/17 21:12 10 mg STAT ONE Administration Metoclopramide HCl Confirm 02/20/17 21:37 Reglan 10 Mg/2 Ml Administered 02/20/17 21:38 Dose 10 mg .ROUTE .STK-MED ONE Ondansetron HCl 4 mg 02/20/17 21:11 02/20/17 21:49 Zofran 4 Mg/2 Ml Vial IV 02/20/17 21:12 4 mg STAT ONE Administration Ondansetron HCl Confirm 02/20/17 21:47 Zofran 4 Mg/2 Ml Vial Administered 02/20/17 21:48 Dose 4 mg .ROUTE .STK-MED ONE Promethazine HCl 25 mg 02/20/17 21:11 02/20/17 21:45 Phenergan 25 Mg Inj IM 02/20/17 21:12 25 mg STAT ONE Administration Promethazine HCl Confirm 02/20/17 21:37 Phenergan 25 Mg Inj Administered 02/20/17 21:38 Dose 25 mg .ROUTE .STK-MED ONE Lab/Rad Data: Laboratory Result Diagrams 02/20/17 21:30 02/20/17 21:30 Laboratory Results 02/21/17 02/20/17 02/20/17 Range/Units 00:08 23:56 23:37 WBC (4.0-10.5) K/mm3 RBC (4.1-5.6) M/mm3 Hgb (12.5-18.0) gm/dl Hct (42-50) % MCV (78-100) fl MCH (26-32) pg MCHC (32-36) g/dl RDW (11.5-14.0) % Plt Count (150-450) K/mm3 MPV (6-9.5) fl Gran % (36.0-66.0) % Lymphocytes % (24.0-44.0) % Monocytes % (0.0-12.0) % Eosinophils % (0.00-5.0) % Basophils % (0.0-0.4) % Basophils # (0-0.4) Sodium (136-145) mEq/L Potassium (3.5-5.1) mEq/L Chloride (98-107) mEq/L Carbon Dioxide (21-32) mEq/L Anion Gap (5-15) MEQ/L BUN (9-20) mg/dL Creatinine (0.55-1.30) mg/dl Estimated GFR ML/MIN Glucose (70-110) MG/DL Lactic Acid 1.0 (0.4-2.0) Calcium (8.5-10.1) mg/dL Total Bilirubin (0.2-1.0) mg/dL AST (15-37) U/L ALT (12-78) U/L Alkaline Phosphatase (46-116) U/L Troponin I < 0.017 (0.000-0.056) ng/ml Serum Total Protein (6.4-8.2) gm/dL Albumin (3.4-5.0) g/dL Amylase (25-115) U/L Lipase (73-393) U/L Ur Collection Type VOID Urine Color DARK YELLOW (YELLOW) Urine Appearance SLIGHTLY CLOUDY (CLEAR) Urine pH 5.0 (5-6) Ur Specific [place] 1.025 (1.005-1.025) Urine Protein 30 (Negative) Urine Ketones MODERATE (NEGATIVE) Urine Blood 250 (0-5) Claudio/ul Urine Nitrite NEGATIVE (NEGATIVE) Urine Bilirubin SMALL (NEGATIVE) Urine Urobilinogen NORMAL (0-1) mg/dL Ur Leukocyte Esterase NEGATIVE (NEGATIVE) Urine Microscopic RBC 2-5 (0-2) /HPF Urine Microscopic WBC 2-5 (0-5) /HPF Ur Epithelial Cells MODERATE (FEW) /HPF Urine Bacteria MODERATE (NEGATIVE) /HPF Hyaline Casts 5-10 (0-2) /LPF Urine Mucus MANY (NEGATIVE) /HPF Urine Culture Reflexed YES (NO) Urine Glucose NEGATIVE (NEGATIVE) mg/dL Specimen Received 02/20/17 2350 02/20/17 02/20/17 02/20/17 Range/Units 21:30 21:30 21:30 WBC 12.3 H (4.0-10.5) K/mm3 RBC 5.19 (4.1-5.6) M/mm3 Hgb 16.4 (12.5-18.0) gm/dl Hct 47.5 (42-50) % MCV 91.5 (78-100) fl MCH 31.6 (26-32) pg MCHC 34.5 (32-36) g/dl RDW 13.4 (11.5-14.0) % Plt Count 326 (150-450) K/mm3 MPV 10.0 H (6-9.5) fl Gran % 76.9 H (36.0-66.0) % Lymphocytes % 15.9 L (24.0-44.0) % Monocytes % 6.7 (0.0-12.0) % Eosinophils % 0.2 (0.00-5.0) % Basophils % 0.3 (0.0-0.4) % Basophils # 0.04 (0-0.4) Sodium 140 (136-145) mEq/L Potassium 3.6 (3.5-5.1) mEq/L Chloride 97 L (98-107) mEq/L Carbon Dioxide 22.9 (21-32) mEq/L Anion Gap 23.7 H (5-15) MEQ/L BUN 9 (9-20) mg/dL Creatinine 1.45 H (0.55-1.30) mg/dl Estimated GFR 58 ML/MIN Glucose 125 H (70-110) MG/DL Lactic Acid (0.4-2.0) Calcium 9.9 (8.5-10.1) mg/dL Total Bilirubin 0.60 (0.2-1.0) mg/dL AST 56 H (15-37) U/L ALT 85 H (12-78) U/L Alkaline Phosphatase 92 (46-116) U/L Troponin I < 0.017 (0.000-0.056) ng/ml Serum Total Protein 8.9 H (6.4-8.2) gm/dL Albumin 4.4 (3.4-5.0) g/dL Amylase 35 (25-115) U/L Lipase 105 (73-393) U/L Ur Collection Type Urine Color (YELLOW) Urine Appearance (CLEAR) Urine pH (5-6) Ur Specific [place] (1.005-1.025) Urine Protein (Negative) Urine Ketones (NEGATIVE) Urine Blood (0-5) Claudio/ul Urine Nitrite (NEGATIVE) Urine Bilirubin (NEGATIVE) Urine Urobilinogen (0-1) mg/dL Ur Leukocyte Esterase (NEGATIVE) Urine Microscopic RBC (0-2) /HPF Urine Microscopic WBC (0-5) /HPF Ur Epithelial Cells (FEW) /HPF Urine Bacteria (NEGATIVE) /HPF Hyaline Casts (0-2) /LPF Urine Mucus (NEGATIVE) /HPF Urine Culture Reflexed (NO) Urine Glucose (NEGATIVE) mg/dL Specimen Received 02/20/17 Range/Units 21:11 WBC (4.0-10.5) K/mm3 RBC (4.1-5.6) M/mm3 Hgb (12.5-18.0) gm/dl Hct (42-50) % MCV (78-100) fl MCH (26-32) pg MCHC (32-36) g/dl RDW (11.5-14.0) % Plt Count (150-450) K/mm3 MPV (6-9.5) fl Gran % (36.0-66.0) % Lymphocytes % (24.0-44.0) % Monocytes % (0.0-12.0) % Eosinophils % (0.00-5.0) % Basophils % (0.0-0.4) % Basophils # (0-0.4) Sodium (136-145) mEq/L Potassium (3.5-5.1) mEq/L Chloride (98-107) mEq/L Carbon Dioxide (21-32) mEq/L Anion Gap (5-15) MEQ/L BUN (9-20) mg/dL Creatinine (0.55-1.30) mg/dl Estimated GFR ML/MIN Glucose (70-110) MG/DL Lactic Acid 4.2 H (0.4-2.0) Calcium (8.5-10.1) mg/dL Total Bilirubin (0.2-1.0) mg/dL AST (15-37) U/L ALT (12-78) U/L Alkaline Phosphatase (46-116) U/L Troponin I (0.000-0.056) ng/ml Serum Total Protein (6.4-8.2) gm/dL Albumin (3.4-5.0) g/dL Amylase (25-115) U/L Lipase (73-393) U/L Ur Collection Type Urine Color (YELLOW) Urine Appearance (CLEAR) Urine pH (5-6) Ur Specific [place] (1.005-1.025) Urine Protein (Negative) Urine Ketones (NEGATIVE) Urine Blood (0-5) Claudio/ul Urine Nitrite (NEGATIVE) Urine Bilirubin (NEGATIVE) Urine Urobilinogen (0-1) mg/dL Ur Leukocyte Esterase (NEGATIVE) Urine Microscopic RBC (0-2) /HPF Urine Microscopic WBC (0-5) /HPF Ur Epithelial Cells (FEW) /HPF Urine Bacteria (NEGATIVE) /HPF Hyaline Casts (0-2) /LPF Urine Mucus (NEGATIVE) /HPF Urine Culture Reflexed (NO) Urine Glucose (NEGATIVE) mg/dL Specimen Received - Progress Progress: improved, re-examined Progress Note: 02/21/17 01:[address] Guzman and pt and best to place on obs and hold ab and repeat cbc in am and labs and continue hydration. Discussed with : Thomas Will see patient in: hospital (observation) Counseled pt/family regarding: diagnosis, need for follow-up, rad results - Departure Time of Disposition: 01:02 Departure Disposition: Observation Clinical Impression: Intractable vomiting, Abdominal pain Condition: Good Critical Care Time: No Referrals: ARIEL MIDDLETON MD [Primary Care Provider] -
[2017-02-20 21:34] LABS: BASOPHIL % 0.3 % (0.0-0.4); Eosinophil % 0.2 % (0.00-5.0); Granulocytes % 76.9 % (36.0-66.0); Lymphocytes % 15.9 % (24.0-44.0); Mean Cell Volume 91.5 fl (78-100); Mean Corpuscular Hemoglobin 31.6 pg (26-32); Monocytes % 6.7 % (0.0-12.0); Platelet Count 326 K/mm3 (150-450); Red Blood Count 5.19 M/mm3 (4.1-5.6); Red Cell Distribution Width 13.4 % (11.5-14.0); White Blood Count 12.3 K/mm3 (4.0-10.5)
[2017-02-20 21:37] LABS: Lactic Acid 4.2 (0.4-2.0)
[2017-02-20] MEDS ORDERED: Reglan 10 MG/2 ML ONE (21:37)
[2017-02-20] MEDS ORDERED: Phenergan 25 MG INJ ONE (21:37)
[2017-02-20] MEDS ORDERED: BENADRYL 50 MG/ML ONE (21:37)
[2017-02-20] MEDS ORDERED: Sodium Chloride 0.9% 1000 ML 1,000 ML ONE ×2 (21:38→21:48)
[2017-02-20] MEDS ORDERED: Zofran 4 MG/2 ML VIAL ONE (21:47)
[2017-02-20 22:06] LABS: ALBUMIN 4.4 g/dL (3.4-5.0); ANION GAP 23.7 MEQ/L (5-15); BILIRUBIN,TOTAL 0.6 mg/dL (0.2-1.0); Carbon Dioxide 22.9 mEq/L (21-32); Potassium 3.6 mEq/L (3.5-5.1); Total Protein 8.9 gm/dL (6.4-8.2)
[2017-02-20] MEDS ORDERED: Merrem 1 GM 1 G in Sodium Chloride 100ML MINI-BAG PLUS 100 ML IV ONE (22:15)
[2017-02-20] MEDS ORDERED: FLAGYL 500 MG IVPB 500 MG/100 ML BAG IV STA (22:15)
[2017-02-20] MEDS ORDERED: Hydromorphone 1 mg/ml Ampule IV ONE (22:22)
[2017-02-20] MEDS ORDERED: Merrem 1 GM IV ONE (22:25)
[2017-02-20] MEDS ORDERED: Sodium Chloride 0.9% 100 ML IVPB 100 ML IV ONE (22:25)
[2017-02-20] MEDS ORDERED: Hydromorphone 1 mg/ml Ampule ONE (22:33)
[2017-02-20] MEDS ORDERED: FLAGYL 500 MG IVPB 500 MG/100 ML BAG IV ONE (23:02)
[2017-02-21 00:14] LABS: Bilirubin SMALL (NEGATIVE); Blood 250 Ery/ul (0-5); COMPLETE URINE MICROSCOPIC? YES; Collection Type VOID; Glucose NEGATIVE (NEGATIVE); Leukocyte Esterase NEGATIVE (NEGATIVE)
[2017-02-21 00:15] LABS: ADD URINE CULTURE? YES (NO); Bacteria MODERATE /HPF (NEGATIVE); Epithelial Cells MODERATE /HPF (FEW); Mucus MANY /HPF (NEGATIVE)
[2017-02-21] MEDS ORDERED: MILK OF MAGNESIA 30 ML PO PRN (01:05)
[2017-02-21] MEDS ORDERED: TYLENOL 325 MG PO PRN (01:05)
[2017-02-21] MEDS ORDERED: Senokot-S Tablet PO PRN (01:05)
[2017-02-21] MEDS ORDERED: MAALOX ES 30 ML UNIT DOSE PO PRN (01:05)
[2017-02-21] MEDS ORDERED: Sodium Chloride 0.9% 500 ML 500 ML IV SCH (01:15)
[2017-02-21] MEDS: Sodium Chloride 0.9% 1000 ML 1,000 ML IV SCH ×4 (02:31→23:10)
[2017-02-21] MEDS ORDERED: DILAUDID 2 MG INJECTION ONE (03:07)
[2017-02-21 06:19] LABS: BASOPHIL % 0.3 % (0.0-0.4); Eosinophil % 0.6 % (0.00-5.0); Granulocytes % 57.1 % (36.0-66.0); Lymphocytes % 33.4 % (24.0-44.0); Mean Cell Volume 93.4 fl (78-100); Mean Platelet Volume 9.6 fl (6-9.5); Monocytes % 8.6 % (0.0-12.0); Platelet Count 237 K/mm3 (150-450); Red Blood Count 4.08 M/mm3 (4.1-5.6); Red Cell Distribution Width 13.3 % (11.5-14.0); White Blood Count 8.8 K/mm3 (4.0-10.5)
[2017-02-21 06:40] LABS: ALBUMIN 3.1 g/dL (3.4-5.0); ALKALINE PHOSPHATASE 61 U/L (46-116); ANION GAP 14.8 MEQ/L (5-15); BLOOD UREA NITROGEN 8 mg/dL (9-20); CHLORIDE 106 mEq/L (98-107); Cholesterol 230 mg/dL (100-200); Glucose 97 MG/DL (70-110); LDL, DIRECT 156 mg/dL (5-99); Potassium 3.5 mEq/L (3.5-5.1); SGOT/AST 35 U/L (15-37); SGPT/ALT 60 U/L (12-78); SODIUM 143 mEq/L (136-145); TRIGLYCERIDE 259 mg/dL (30-200); Total Protein 6.5 gm/dL (6.4-8.2)
[2017-02-21 06:41] LABS: Mean Corpuscular Hemoglobin 31.3 pg (26-32)
--- NOTE | 2017-02-21 08:22 | XRAY ---
Indication: Left abdominal pain. Nausea, vomiting, diarrhea. History diverticulosis. Multiple contiguous images obtained through the abdomen and pelvis without contrast as ordered. Comparison: January 14, 2017. Lung bases remain clear. There is now a partially visualized medial lingular bullae. Heart is not enlarged. Noncontrasted stomach and bowel loops again appear nonobstructed. No free fluid/air. Stable fatty liver. Remaining liver, gallbladder, pancreas, spleen, adrenal glands, kidneys, ureters, bladder, and aorta appear unremarkable for noncontrast exam. Osseous structures intact. Stable moderate size fatty left inguinal hernia. Impression: 1. Stable fatty liver and fatty left inguinal hernia. 2. No new or acute intra-abdominal/pelvic abnormality is on this noncontrasted exam. Comment: Preliminary interpretation was made by [facility]. No discrepancy. CT DI 21.65
[2017-02-21] MEDS: Pepcid 20 MG VIAL IV SCH ×2 (09:25→23:06)
[2017-02-21] MEDS: Ecotrin 325 MG PO SCH (09:25)
[2017-02-21] MEDS ORDERED: PROTONIX 40 MG IV IV SCH (10:00)
--- NOTE | 2017-02-21 14:06 | PCM.HP ---
History of Present Illness - Chief Complaint Chief Complaint: intractable vomiting, abdominal pain, T wave changes History of Present Illness: is a 36 year old male pt of Dr. Samayoa who came to ER c/o 4d of vomiting and inability to shannan po. Tried zofran at home without relief. He was in the hospital last month with similar complaints (also with burning in epigastrum), had some signs of inflammation on CT in the colon, was treated with IV antibiotics and sent home after he recovered. EGD at that time was negative. He saw me in follow up; was feeling "95% better" at that time and advised to RTC in 2 wks; continued PPI. He has had one other episode of vomiting last year that required hospitalization. He has not vomited since being on the Med/Surg floor. Did vomit in the ER. - Review of Systems Constitutional: Weakness, Weight Loss (12 lb in the past 1 week), No Fever Ears, Nose, & Throat: Sinus Drainage Abdominal/Gastrointestinal: Abdominal Pain (none today; had pain yesterday with vomiting), Nausea, Vomiting, Diarrhea (x 2 yesterday), Hematemesis (may have had some yesterday), No Hematochezia, No Melena Genitourinary Symptoms: Other (infrequent urination the past 3-4 days) Musculoskeletal: Back Pain (chronic low back pain) Psychological: Anxiety, No Depression, No Suicidal Ideations, No Homicidal Ideations All Other Systems: Reviewed and Negative Medications & Allergies Home Medications: Home Medication List Lisinopril/Hydrochlorothiazide [Lisinopril-Hctz 20-12.5 mg Tab] 1 tab PO BID [History Confirmed 02/20/17] Omeprazole 20 MG [Prilosec 20 mg] 20 mg PO DAILY 09/25/13 [History Confirmed ] Diazepam [Valium] 10 mg PO TID 01/14/17 [History Confirmed 02/21/17] Polyethylene Glycol 3350 17 gm [Miralax Powder 17GM PACKET] 1 pack PO DAILY 02/21/17 [History Confirmed 02/21/17] Allergies/Adverse Reactions: Allergies Allergy/AdvReac Type Severity Reaction Status Date / Time NKA Allergy Mild Verified 02/20/17 22:42 - Past Medical History Past Medical History: Yes Neurological History: No Pertinent History ENT History: No Pertinent History Cardiac History: Hypertension, Other Respiratory History: No Pertinent History Endocrine Medical History: No Pertinent History Musculoskelatal History: Degenerative Disk Disease, Fractures GI Medical History: GERD History: No Pertinent History Pyscho-Social History: Anxiety Male Reproductive Disorders: No Pertinent History Comment: R HAND FX. recent tachycardia and vomiting/ difficult swallowing - Past Surgical History Past Surgical History: Yes Neuro Surgical History: No Pertinent History Cardiac History: No Pertinent History Respiratory Surgery: No Pertinent History GI Surgical History: Hernia Repair Genitourinary Surgical Hx: No Pertinent History Musculskeletal Surgical Hx: Orthopedic Surgery Male Surgical History: No Pertinent History Other Surgical History: R HAND - Social History Smoking Status: Heavy tobacco smoker How long have you smoked: 20 years Exposure to second hand smoke: No Alcohol: Occasionally Drug Use: none - Physical Exam Vital Signs: Vital Signs - 24 hr Temp Pulse Resp BP Pulse Ox 02/21/17 11:19 97.8 F 70 18 92/54 97 02/21/17 10:11 97.8 F 02/21/17 07:51 97.8 F 78 20 98/54 98 02/21/17 06:49 97.8 F 78 20 98/54 98 02/21/17 06:00 16 02/21/17 02:56 98.3 F 76 17 114/76 94 L 02/21/17 01:04 98 02/21/17 00:30 105 H 20 131/60 95 02/20/17 22:58 115 H 20 144/100 94 L 02/20/17 22:04 121 H 22 156/106 96 02/20/17 20:55 98.5 F 130 H 24 148/106 98 General Appearance: no apparent distress, alert Neurologic Exam: oriented x 3, cooperative Eye Exam: other (dark circles under eyes bilat) Neck Exam: normal inspection, non-tender, No lymphadenopathy Respiratory Exam: normal breath sounds, No crackles/rales, No rhonchi, No wheezing Cardiovascular Exam: regular rate/rhythm, normal heart sounds, No murmur Gastrointestinal/Abdomen Exam: soft, normal bowel sounds, tenderness (epigastrum , LLQ), No distention, No mass, No guarding, No rebound Back Exam: normal inspection, CVA tenderness (bilat, mild) Extremity Exam: No pedal edema, No swelling Skin Exam: normal color, warm, dry, No rash Results - Labs Lab/Micro Results: Accuchecks Accucheck Value: 96 Lab Results-Last 24 Hours 02/21/17 02/21/17 02/21/17 Range/Units 03:22 05:00 06:05 WBC (4.0-10.5) K/mm3 RBC (4.1-5.6) M/mm3 Hgb (12.5-18.0) gm/dl Hct (42-50) % MCV (78-100) fl MCH (26-32) pg MCHC (32-36) g/dl RDW (11.5-14.0) % Plt Count (150-450) K/mm3 MPV (6-9.5) fl Gran % (36.0-66.0) % Lymphocytes % (24.0-44.0) % Monocytes % (0.0-12.0) % Eosinophils % (0.00-5.0) % Basophils % (0.0-0.4) % Basophils # (0-0.4) Sodium (136-145) mEq/L Potassium (3.5-5.1) mEq/L Chloride (98-107) mEq/L Carbon Dioxide (21-32) mEq/L Anion Gap (5-15) MEQ/L BUN (9-20) mg/dL Creatinine (0.55-1.30) mg/dl Estimated GFR ML/MIN Glucose (70-110) MG/DL Hemoglobin A1c 6.3 H (4.5-6.2) Lactic Acid (0.4-2.0) Calcium (8.5-10.1) mg/dL Total Bilirubin (0.2-1.0) mg/dL AST (15-37) U/L ALT (12-78) U/L Alkaline Phosphatase (46-116) U/L Troponin I < 0.017 < 0.017 (0.000-0.056) ng/ml Serum Total Protein (6.4-8.2) gm/dL Albumin (3.4-5.0) g/dL Triglycerides (30-200) mg/dL Cholesterol (100-200) mg/dL LDL Cholesterol (5-99) mg/dL HDL Cholesterol (35-60) mg/dL Heart Disease Risk Ratio 02/21/17 02/21/17 02/21/17 Range/Units 06:05 06:05 06:40 WBC 8.8 (4.0-10.5) K/mm3 RBC 4.08 L (4.1-5.6) M/mm3 Hgb 12.8 (12.5-18.0) gm/dl Hct 38.1 L (42-50) % MCV 93.4 (78-100) fl MCH 31.3 (26-32) pg MCHC 33.6 (32-36) g/dl RDW 13.3 (11.5-14.0) % Plt Count 237 (150-450) K/mm3 MPV 9.6 H (6-9.5) fl Gran % 57.1 (36.0-66.0) % Lymphocytes % 33.4 (24.0-44.0) % Monocytes % 8.6 (0.0-12.0) % Eosinophils % 0.6 (0.00-5.0) % Basophils % 0.3 (0.0-0.4) % Basophils # 0.03 (0-0.4) Sodium 143 (136-145) mEq/L Potassium 3.5 (3.5-5.1) mEq/L Chloride 106 (98-107) mEq/L Carbon Dioxide 26.0 (21-32) mEq/L Anion Gap 14.8 (5-15) MEQ/L BUN 8 L (9-20) mg/dL Creatinine 0.99 (0.55-1.30) mg/dl Estimated GFR > 60 ML/MIN Glucose 97 (70-110) MG/DL Hemoglobin A1c (4.5-6.2) Lactic Acid 0.9 (0.4-2.0) Calcium 8.1 L (8.5-10.1) mg/dL Total Bilirubin 0.40 (0.2-1.0) mg/dL AST 35 (15-37) U/L ALT 60 (12-78) U/L Alkaline Phosphatase 61 (46-116) U/L Troponin I (0.000-0.056) ng/ml Serum Total Protein 6.5 (6.4-8.2) gm/dL Albumin 3.1 L (3.4-5.0) g/dL Triglycerides 259 H (30-200) mg/dL Cholesterol 230 H (100-200) mg/dL LDL Cholesterol 156 H (5-99) mg/dL HDL Cholesterol 25 L (35-60) mg/dL Heart Disease Risk Ratio 9.2 02/21/17 Range/Units 09:20 WBC (4.0-10.5) K/mm3 RBC (4.1-5.6) M/mm3 Hgb (12.5-18.0) gm/dl Hct (42-50) % MCV (78-100) fl MCH (26-32) pg MCHC (32-36) g/dl RDW (11.5-14.0) % Plt Count (150-450) K/mm3 MPV (6-9.5) fl Gran % (36.0-66.0) % Lymphocytes % (24.0-44.0) % Monocytes % (0.0-12.0) % Eosinophils % (0.00-5.0) % Basophils % (0.0-0.4) % Basophils # (0-0.4) Sodium (136-145) mEq/L Potassium (3.5-5.1) mEq/L Chloride (98-107) mEq/L Carbon Dioxide (21-32) mEq/L Anion Gap (5-15) MEQ/L BUN (9-20) mg/dL Creatinine (0.55-1.30) mg/dl Estimated GFR ML/MIN Glucose (70-110) MG/DL Hemoglobin A1c (4.5-6.2) Lactic Acid (0.4-2.0) Calcium (8.5-10.1) mg/dL Total Bilirubin (0.2-1.0) mg/dL AST (15-37) U/L ALT (12-78) U/L Alkaline Phosphatase (46-116) U/L Troponin I < 0.017 (0.000-0.056) ng/ml Serum Total Protein (6.4-8.2) gm/dL Albumin (3.4-5.0) g/dL Triglycerides (30-200) mg/dL Cholesterol (100-200) mg/dL LDL Cholesterol (5-99) mg/dL HDL Cholesterol (35-60) mg/dL Heart Disease Risk Ratio Accuchecks Accucheck Value: 96 - Other Procedures and Tests Respiratory Therapy 02/22/17 05:00 EKG DAILY 02/23/17 05:00 EKG DAILY 02/24/17 05:00 EKG DAILY Assessment/Plan (1) Intractable vomiting Current Visit: Yes Status: Acute Assessment & Plan: He was given IV antibiotics in the ER last night as his WBC were elevated and his lactate was over 4. Antibiotics were stopped after that. WBC count may have been elevated due to vomiting; normal this morning. Would like to see that labs and WBC count can stay normal over 24 hours without the antibiotics. Would also like to try CLD and see how well it is tolerated. With his recurrent hospital visits with no clear etiology, would refer pt to GI outpatient. Code(s): R11.10 - VOMITING, UNSPECIFIED (2) Chest pain, rule out acute myocardial infarction Current Visit: No Status: Ruled-out Assessment & Plan: Had some CP in ER, likely related to the vomiting. Does have a family history of CAD. Several troponins negative so far. Code(s): R07.9 - CHEST PAIN, UNSPECIFIED (3) Essential (primary) hypertension Current Visit: No Status: Chronic Code(s): I10 - ESSENTIAL (PRIMARY) HYPERTENSION (4) Diarrhea Current Visit: No Status: Resolved Qualifiers: Diarrhea type: unspecified type Qualified Code(s): R19.7 - Diarrhea, unspecified Assessment & Plan: If it recurred, would check c. diff. Code(s): R19.7 - DIARRHEA, UNSPECIFIED (5) Fatigue Current Visit: Yes Status: Acute Qualifiers: Fatigue type: chronic, unspecified Qualified Code(s): R53.82 - Chronic fatigue, unspecified Assessment & Plan: The patient looks like he feels unwell; his mom confirmed that this is not his baseline. Will go ahead and check HIV. Code(s): R53.83 - OTHER FATIGUE (6) Abnormal flushing and sweating Current Visit: Yes Status: Acute Assessment & Plan: has sweats at times, not particularly at night, this has been going on for years. He tells me he tests positive for TB. CXR 01/14/17 was nl. Code(s): R23.2 - FLUSHING (7) Hyperglycemia Current Visit: Yes Status: Acute Assessment & Plan: High BS here, but rechecks have been wnl. checking a1c. Code(s): R73.9 - HYPERGLYCEMIA, UNSPECIFIED
[2017-02-21] MEDS: Zofran 4 MG/2 ML VIAL IV PRN (18:32)
[2017-02-21] MEDS: DILAUDID 2 MG INJECTION IV PRN (20:02)
[2017-02-21] MEDS: Nicoderm CQ 21 MG TOP SCH (23:06)
[2017-02-22] MEDS: DILAUDID 2 MG INJECTION IV PRN (01:13)
[2017-02-22] MEDS: Sodium Chloride 0.9% 1000 ML 1,000 ML IV SCH (05:40)
[2017-02-22 05:50] LABS: BASOPHIL % 0.4 % (0.0-0.4); Eosinophil % 1.3 % (0.00-5.0); Granulocytes % 54.4 % (36.0-66.0); Lymphocytes % 36.9 % (24.0-44.0); Mean Cell Volume 95.5 fl (78-100); Mean Corpuscular Hemoglobin 31.4 pg (26-32); Mean Platelet Volume 9.6 fl (6-9.5); Platelet Count 206 K/mm3 (150-450); Red Blood Count 3.82 M/mm3 (4.1-5.6); Red Cell Distribution Width 13.4 % (11.5-14.0); White Blood Count 6.9 K/mm3 (4.0-10.5)
[2017-02-22 06:21] LABS: ALBUMIN 2.7 g/dL (3.4-5.0); ALKALINE PHOSPHATASE 53 U/L (46-116); ANION GAP 10.6 MEQ/L (5-15); BLOOD UREA NITROGEN 8 mg/dL (9-20); CHLORIDE 110 mEq/L (98-107); Carbon Dioxide 27.3 mEq/L (21-32); Glucose 85 MG/DL (70-110); Potassium 3.5 mEq/L (3.5-5.1); SGOT/AST 42 U/L (15-37); SGPT/ALT 60 U/L (12-78); SODIUM 144 mEq/L (136-145); Total Protein 5.6 gm/dL (6.4-8.2)
[2017-02-22] MEDS: Zofran 4 MG/2 ML VIAL IV PRN ×2 (06:59→13:22)
[2017-02-22] MEDS: Valium 5 MG PO SCH ×3 (09:58→22:04)
[2017-02-22] MEDS: Pepcid 20 MG VIAL IV SCH ×2 (09:58→22:04)
[2017-02-22] MEDS: Ecotrin 325 MG PO SCH (09:58)
[2017-02-22] MEDS: Protonix 40MG Tablet PO SCH (09:58)
[2017-02-22] MEDS ORDERED: NON-FORMULARY ITEM (Diazepam [Valium] 10 MG) PO SCH (10:00)
[2017-02-22] MEDS ORDERED: NON-FORMULARY ITEM (Omeprazole 20 Mg [Prilosec 20 Mg] 20 MG) PO SCH (10:00)
--- NOTE | 2017-02-22 12:31 | PCM.NOTE ---
Date and Time: 02/22/17 1226 Subjective Assessment: Patient reports that he has had cold sweats, no fevers. He denies constipation and states he has had one small stool since his admission. He states his vomiting is better. He continues to have abdominal pain that is worse with eating. He states his father had colon cancer when he was 51-52 years old. He reports his pain is in the epigastric to left side of his abdomen. He had an upper endoscopy earlier this month that was normal but did not have any biopsies taken for H. pylori that I can find. He has not had a colonoscopy or gallbladder US. He would like to try a more solid diet. He is willing to try some oral pain medication. - Review of Systems Constitutional: No Symptoms Eyes: No Symptoms Ears, Nose, & Throat: No Symptoms Respiratory: No Symptoms Cardiac: No Symptoms Abdominal/Gastrointestinal: Abdominal Pain, Nausea, Vomiting, Diarrhea Genitourinary Symptoms: No Symptoms Musculoskeletal: No Symptoms Skin: No Symptoms Objective Exam General Appearance: no apparent distress, alert Neurologic Exam: alert, cooperative, normal mood/affect Skin Exam: normal color, warm, dry Respiratory Exam: normal breath sounds, lungs clear, No crackles/rales, No rhonchi, No wheezing Cardiovascular Exam: regular rate/rhythm, normal heart sounds, No murmur, No friction rub, No gallop Gastrointestinal/Abdomen Exam: soft, other (mild epigastric and left upper quadrant and left lower quadrant tenderness; hyperactive bowel sounds), No guarding Extremity Exam: normal inspection, other (no c/c/e) OBJECTIVE DATA Vital Signs: Vital Signs - 24 hr Temp Pulse Resp BP Pulse Ox 02/22/17 11:42 20 02/22/17 11:36 98.1 F 97 H 20 138/85 94 L 02/22/17 07:40 97.8 F 93 H 20 139/82 94 L 02/22/17 06:00 16 02/22/17 04:00 98.0 F 88 15 109/67 94 L 02/22/17 00:00 97.8 F 78 15 110/58 92 L 02/21/17 19:47 97.7 F 81 15 112/78 94 L 02/21/17 16:00 98.2 F 75 18 112/74 95 02/21/17 14:00 97.8 F 70 18 92/54 97 Pain Assessment - Last Documented Pain Intensity 8 Pain Scale Used [facility] Intake and Output: Intake & Output 02/20/17 02/21/17 02/22/17 02/23/17 06:59 06:59 06:59 06:59 Intake Total 500 4875 500 Output Total 0 825 600 Balance 500 4050 -100 Weight 85.275 kg 90.174 kg Lab Results: Lab Results-Last 24 Hours 02/22/17 02/22/17 Range/Units 05:25 05:25 WBC 6.9 (4.0-10.5) K/mm3 RBC 3.82 L (4.1-5.6) M/mm3 Hgb 12.0 L (12.5-18.0) gm/dl Hct 36.5 L (42-50) % MCV 95.5 (78-100) fl MCH 31.4 (26-32) pg MCHC 32.9 (32-36) g/dl RDW 13.4 (11.5-14.0) % Plt Count 206 (150-450) K/mm3 MPV 9.6 H (6-9.5) fl Gran % 54.4 (36.0-66.0) % Lymphocytes % 36.9 (24.0-44.0) % Monocytes % 7.0 (0.0-12.0) % Eosinophils % 1.3 (0.00-5.0) % Basophils % 0.4 (0.0-0.4) % Basophils # 0.03 (0-0.4) Sodium 144 (136-145) mEq/L Potassium 3.5 (3.5-5.1) mEq/L Chloride 110 H (98-107) mEq/L Carbon Dioxide 27.3 (21-32) mEq/L Anion Gap 10.6 (5-15) MEQ/L BUN 8 L (9-20) mg/dL Creatinine 0.93 (0.55-1.30) mg/dl Estimated GFR > 60 ML/MIN Glucose 85 (70-110) MG/DL Calcium 7.8 L (8.5-10.1) mg/dL Total Bilirubin 0.30 (0.2-1.0) mg/dL AST 42 H (15-37) U/L ALT 60 (12-78) U/L Alkaline Phosphatase 53 (46-116) U/L Serum Total Protein 5.6 L (6.4-8.2) gm/dL Albumin 2.7 L (3.4-5.0) g/dL Radiology Exams: Radiology Procedures Category Date Time Status GALLBLADDER [US] Routine Exams 02/24/17 Ordered Assessment/Plan (1) Abdominal pain Current Visit: Yes Status: Acute Assessment & Plan: Continue to advance diet as tolerated. Gallbladder US ordered for Friday. H. pylori stool antigen ordered. Code(s): R10.9 - UNSPECIFIED ABDOMINAL PAIN (2) Family history of colon cancer in father Current Visit: Yes Status: Acute Assessment & Plan: Patient advised that he would at least need his first colonoscopy 10 years before his father's diagnosis which the patient states his father as diagnosed at age 51-52 years old. Code(s): Z80.0 - FAMILY HISTORY OF MALIGNANT NEOPLASM OF DIGESTIVE ORGANS (3) Chest pain Current Visit: No Status: Acute Qualifiers: Chest pain type: other chest pain Qualified Code(s): R07.89 - Other chest pain; R07.8 - Other chest pain Assessment & Plan: Ruled out. D/C tele. Pt reports already set up for nuclear stress test as outpatient. Code(s): R07.9 - CHEST PAIN, UNSPECIFIED (4) Essential (primary) hypertension Current Visit: No Status: Chronic Assessment & Plan: His blood pressure medication is currently held and his blood pressure is good right now. Code(s): I10 - ESSENTIAL (PRIMARY) HYPERTENSION
[2017-02-22] MEDS: Dextrose 5% -0.45 NaCl 1000 ML 1,000 ML IV SCH (12:34)
[2017-02-22] MEDS: NORCO 5/325 MG PO PRN ×2 (13:28→18:26)
[2017-02-22] MEDS ORDERED: Zestril 20 MG PO ONE (16:30)
[2017-02-22] MEDS ORDERED: hydroDIURIL 25 MG PO ONE (16:30)
[2017-02-22] MEDS ORDERED: NON-FORMULARY ITEM (Lisinopril/Hydrochlorothiazide [Lisinopril-Hctz 20-12.5 Mg Tab] 1 TAB) PO SCH (22:00)
[2017-02-22] MEDS: Nicoderm CQ 21 MG TOP SCH (22:03)
[2017-02-23] MEDS: NORCO 5/325 MG PO PRN ×3 (02:11→20:03)
[2017-02-23] MEDS: Zofran 4 MG/2 ML VIAL IV PRN ×3 (02:12→17:00)
[2017-02-23] MEDS: Dextrose 5% -0.45 NaCl 1000 ML 1,000 ML IV SCH ×2 (02:18→16:48)
[2017-02-23] MEDS: Ecotrin 325 MG PO SCH (10:14)
[2017-02-23] MEDS: hydroDIURIL 25 MG PO SCH ×2 (10:14→21:14)
[2017-02-23] MEDS: Valium 5 MG PO SCH ×3 (10:15→21:13)
[2017-02-23] MEDS: Protonix 40MG Tablet PO SCH (10:15)
[2017-02-23] MEDS: Zestril 20 MG PO SCH ×2 (10:16→21:14)
[2017-02-23] MEDS: Pepcid 20 MG VIAL IV SCH ×2 (10:16→21:13)
--- NOTE | 2017-02-23 10:38 | PCM.NOTE ---
Date and Time: 02/23/17 1033 Subjective Assessment: He reports he was able to keep some solid food down but continues to have nausea when eating, epigastric pain and left lower quadrant pain. He thinks that his father was in his late 40's when he was diagnosed with colon cancer. This patient has never had a colonoscopy before. - Review of Systems Constitutional: No Symptoms Eyes: No Symptoms Ears, Nose, & Throat: No Symptoms Respiratory: No Symptoms Cardiac: Other (sharp chest pain lasting a few seconds) Abdominal/Gastrointestinal: Abdominal Pain, Nausea Genitourinary Symptoms: No Symptoms Musculoskeletal: No Symptoms Skin: No Symptoms Objective Exam General Appearance: no apparent distress, alert Neurologic Exam: alert, cooperative, normal mood/affect Skin Exam: normal color, warm, dry, No rash Respiratory Exam: normal breath sounds, No crackles/rales, No rhonchi, No wheezing Cardiovascular Exam: regular rate/rhythm, No murmur, No friction rub, No gallop Gastrointestinal/Abdomen Exam: soft, normal bowel sounds, tenderness, No distention, No mass, No guarding Extremity Exam: normal inspection, other (no c/c/e) OBJECTIVE DATA Vital Signs: Vital Signs - 24 hr Temp Pulse Resp BP Pulse Ox 02/23/17 07:01 97.7 F 76 18 144/90 96 02/23/17 05:55 16 02/23/17 03:54 97.8 F 76 16 136/90 95 02/23/17 00:00 20 02/22/17 23:26 97.7 F 82 20 132/87 95 02/22/17 19:40 98.0 F 83 18 144/89 96 02/22/17 18:00 20 02/22/17 16:00 98.6 F 81 20 155/92 93 L 02/22/17 11:42 20 02/22/17 11:36 98.1 F 97 H 20 138/85 94 L Pain Assessment - Last Documented Pain Intensity 6 Pain Scale Used 0-10 Pain Scale Intake and Output: Intake & Output 02/21/17 02/22/17 02/23/17 02/24/17 06:59 06:59 06:59 06:59 Intake Total 500 4875 4058 Output Total 0 825 3275 Balance 500 4050 783 Weight 85.275 kg 90.174 kg 88.536 kg Lab Results: Lab Results-Last 24 Hours 02/21/17 Range/Units 06:05 HIV Ag/Ab Interpret See Result Note: HIV 1&2 Antigen & Ab Non Reactive (Non Reactive) Radiology Exams: Radiology Procedures Category Date Time Status GALLBLADDER [US] Routine Exams 02/24/17 Ordered Multi-Disciplinary Progress Notes: Multi-Disciplinary Progress Notes 02/23/17 04:44 Respiratory Note by Scott Johnson NOTICED ALL EKG ORDERS WERE "INACTIVE". INQUIRED W/ NURSING AND CONFIRMED THAT EKG'S WERE NO LONGER NEEDED SYMPTOMS WERE RULED OUT. Initialized on 02/23/17 04:44 - END OF NOTE Assessment/Plan (1) Abdominal pain Current Visit: Yes Status: Acute Assessment & Plan: Plan for gallbladder US tomorrow. Patient says Dr. Guzman was going to set him up to see a respiratory manager as an outpatient. Code(s): R10.9 - UNSPECIFIED ABDOMINAL PAIN (2) Family history of colon cancer in father Current Visit: Yes Status: Acute Assessment & Plan: Discussed with patient that he needs to talk to his PCP about screening for colon cancer as patient reports his father was diagnosed with colon cancer in his late 40's. Code(s): Z80.0 - FAMILY HISTORY OF MALIGNANT NEOPLASM OF DIGESTIVE ORGANS (3) Chest pain Current Visit: No Status: Acute Qualifiers: Chest pain type: other chest pain Qualified Code(s): R07.89 - Other chest pain; R07.8 - Other chest pain Assessment & Plan: He has an outpatient stress test scheduled already. Only sharp fleeting pain reported today when he is lying in bed. Code(s): R07.9 - CHEST PAIN, UNSPECIFIED (4) Essential (primary) hypertension Current Visit: No Status: Chronic Assessment & Plan: Home antihypertensives restarted. Code(s): I10 - ESSENTIAL (PRIMARY) HYPERTENSION (5) Tobacco abuse Current Visit: Yes Status: Acute Assessment & Plan: Patient counseled that he needs to quit smoking. Code(s): Z72.0 - TOBACCO USE
[2017-02-23] MEDS: DILAUDID 2 MG INJECTION IV PRN ×3 (12:51→21:13)
[2017-02-23] MEDS: Nicoderm CQ 21 MG TOP SCH (21:15)
[2017-02-24] MEDS: Dextrose 5% -0.45 NaCl 1000 ML 1,000 ML IV SCH ×2 (07:40→22:30)
--- NOTE | 2017-02-24 07:50 | PCM.NOTE ---
Date and Time: 02/24/17 0748 Subjective Assessment: patient shannan po yesterday, still c/o nausea today. has some LUQ pain. Objective Exam General Appearance: no apparent distress, alert Respiratory Exam: normal breath sounds, lungs clear, No respiratory distress Cardiovascular Exam: regular rate/rhythm, normal heart sounds Gastrointestinal/Abdomen Exam: tenderness (LUQ), No guarding, No rebound Extremity Exam: normal inspection, normal range of motion OBJECTIVE DATA Vital Signs: Vital Signs - 24 hr Temp Pulse Resp BP Pulse Ox 02/24/17 07:07 97.6 F 73 20 130/87 98 02/24/17 05:59 18 02/24/17 04:00 97.9 F 73 18 141/93 94 L 02/24/17 00:00 16 02/23/17 23:47 97.9 F 77 16 145/92 95 02/23/17 20:30 142/93 02/23/17 19:38 98.0 F 90 20 146/101 93 L 02/23/17 16:29 98 F 78 20 148/80 96 02/23/17 11:13 97.8 F 80 20 140/89 96 Pain Assessment - Last Documented Pain Intensity 3 Pain Scale Used [facility] Intake and Output: Intake & Output 02/21/17 02/22/17 02/23/17 02/24/17 11:59 11:59 11:59 11:59 Intake Total 500 5375 3558 2497 Output Total 0 1425 2675 3450 Balance 500 3950 883 -953 Weight 85.275 kg 90.174 kg 88.536 kg 88.932 kg Radiology Exams: Radiology Procedures Category Date Time Status GALLBLADDER [US] Routine Exams 02/24/17 Ordered Assessment/Plan (1) Abdominal pain Current Visit: Yes Status: Acute Assessment & Plan: check gb u/s today, if ok will feed regular diet and see if we can control symptoms with po meds. if so d/c home and have outpatient f/u with GI Code(s): R10.9 - UNSPECIFIED ABDOMINAL PAIN (2) Intractable vomiting Current Visit: Yes Status: Acute Code(s): R11.10 - VOMITING, UNSPECIFIED
--- NOTE | 2017-02-24 08:34 | XRAY ---
Indication: Pain. Nausea and vomiting. Two-dimensional right upper quadrant abdominal sonogram performed. Comparison: March 07, 2008. Gallbladder normally distended without gallstones, wall thickening, or pericholecystic fluid. Common bile duct measures 5.2 mm. No intrahepatic biliary distention. Visualized portions of the liver fatty in echogenicity without focal solid/cystic mass. Remaining visualized pancreas and right kidney sonographically unremarkable. Right kidney measures 11 cm in length. No ascites. Impression: Fatty liver in a otherwise negative gallbladder sonogram.
[2017-02-24] MEDS: Ecotrin 325 MG PO SCH (09:10)
[2017-02-24] MEDS: Protonix 40MG Tablet PO SCH (09:10)
[2017-02-24] MEDS: Valium 5 MG PO SCH ×3 (09:10→21:55)
[2017-02-24] MEDS: hydroDIURIL 25 MG PO SCH ×2 (09:10→21:42)
[2017-02-24] MEDS: Zestril 20 MG PO SCH ×2 (09:10→21:42)
[2017-02-24] MEDS: Pepcid 20 MG VIAL IV SCH ×2 (09:11→21:44)
[2017-02-24] MEDS: NORCO 5/325 MG PO PRN ×3 (09:15→21:56)
[2017-02-24] MEDS ORDERED: DULCOLAX 5 MG PO PRN (11:14)
[2017-02-24] MEDS: Nicoderm CQ 21 MG TOP SCH (21:44)
[2017-02-24] MEDS: ZOFRAN ODT 4 MG PO PRN (21:54)
[2017-02-25] MEDS: NORCO 5/325 MG PO PRN (02:51)
--- NOTE | 2017-02-25 05:25 | PCM.NOTE ---
Date and Time: 02/25/17521 Subjective Assessment: patient still c/o severe LLQ pain, uncontrolled by po meds. still with severe nausea when pain is severe. he is frustrated with not being able to find a cause of his symptoms. Objective Exam General Appearance: no apparent distress, alert Respiratory Exam: normal breath sounds, lungs clear, No respiratory distress Cardiovascular Exam: regular rate/rhythm, normal heart sounds Gastrointestinal/Abdomen Exam: tenderness (LLQ), No guarding, No rebound Extremity Exam: normal inspection, normal range of motion OBJECTIVE DATA Vital Signs: Vital Signs - 24 hr Temp Pulse Resp BP Pulse Ox 02/25/17 04:00 97.9 F 71 16 122/79 95 02/25/17 00:00 98.5 F 75 18 155/90 95 02/24/17 20:00 98.1 F 76 20 136/72 94 L 02/24/17 16:00 98.3 F 66 20 131/92 93 L 02/24/17 11:06 98 F 79 20 139/99 96 02/24/17 07:07 97.6 F 73 20 130/87 98 02/24/17 05:59 18 Pain Assessment - Last Documented Pain Intensity 5 Pain Scale Used [facility] Intake and Output: Intake & Output 02/22/17 02/23/17 02/24/17 02/25/17 11:59 11:59 11:59 11:59 Intake Total 5375 3558 2497 880 Output Total 1425 2675 3450 400 Balance 3950 883 -953 480 Weight 90.174 kg 88.536 kg 88.932 kg Radiology Exams: Radiology Procedures Category Date Time Status GALLBLADDER [US] Routine Exams 02/24/17 Completed HIDA-GALL BLADDER [NUCMED] Urgent Exams 02/27/17 14:35 Ordered Multi-Disciplinary Progress Notes: Multi-Disciplinary Progress Notes 02/24/17 09:05 (created 02/24/17 15:28) Case Management Note by Judith Russo INDEPENDENT WITH ALL ADL'S. RETURN WITH /FAMILY TO PRE EPISODIC LEVEL OF FNX. Initialized on 02/24/17 15:28 - END OF NOTE Assessment/Plan (1) Abdominal pain Current Visit: Yes Status: Acute Assessment & Plan: uncertain etiology, gb u/s negative, ct shows nothing acute. had an EGD that was normal recently, will have colonoscopy tomorrow. prep today. resume IV pain/ nausea meds since prepping today in an attempt to get a good prep Code(s): R10.9 - UNSPECIFIED ABDOMINAL PAIN (2) Intractable vomiting Current Visit: Yes Status: Acute Assessment & Plan: seems improved at this time, feel this may be more pain related. Code(s): R11.10 - VOMITING, UNSPECIFIED
[2017-02-25 05:54] LABS: BASOPHIL % 0.4 % (0.0-0.4); Eosinophil % 1.5 % (0.00-5.0); Granulocytes % 66.4 % (36.0-66.0); Lymphocytes % 25.4 % (24.0-44.0); Mean Cell Volume 91.9 fl (78-100); Mean Corpuscular Hemoglobin 31.4 pg (26-32); Mean Platelet Volume 9.6 fl (6-9.5); Monocytes % 6.3 % (0.0-12.0); Platelet Count 268 K/mm3 (150-450); Red Blood Count 4.46 M/mm3 (4.1-5.6); Red Cell Distribution Width 12.8 % (11.5-14.0); White Blood Count 11.2 K/mm3 (4.0-10.5)
[2017-02-25 06:14] LABS: ALBUMIN 3.6 g/dL (3.4-5.0); ALKALINE PHOSPHATASE 76 U/L (46-116); ANION GAP 11.4 MEQ/L (5-15); BLOOD UREA NITROGEN 5 mg/dL (9-20); CHLORIDE 102 mEq/L (98-107); Carbon Dioxide 34.1 mEq/L (21-32); Glucose 94 MG/DL (70-110); Potassium 3.9 mEq/L (3.5-5.1); SGOT/AST 44 U/L (15-37); SGPT/ALT 71 U/L (12-78); SODIUM 144 mEq/L (136-145); Total Protein 7.4 gm/dL (6.4-8.2)
--- NOTE | 2017-02-25 08:09 | CONS ---
CONSULT DATE: 02/23/2017 This patient is seen for Dr. Hooker who is aviation survival technician for our group today. I was doing some cases and asked that I stop by and check on the patient. HISTORY: The patient is a 36 year-old gentleman who has some left mid upper abdominal aches and pains and some vomiting worse when he eats. It has been going on over the past month or so. He has been in the hospital previously here this month and had a negative EGD. He had unremarkable CT scan. He had a repeat CT scan this admission. He had some fat in the left inguinal area where he is not having pain over the area and feel its fatty liver. Otherwise no new acute abdominal changes from his last CT scan three or four weeks ago. Ultrasound was negative gallbladder ultrasound. He had EGD by Dr. Samayoa the first of January. It sounds like he has not had a HIDA scan or colonoscopy yet. PAST MEDICAL HISTORY: Hypertension, degenerative disc disease, some problems with reflux, anxiety. PAST SURGICAL HISTORY: Right hand surgery in the past. HOME MEDICATIONS: Includes MiraLAX, omeprazole, Valium, lisinopril, hydrochlorothiazide. ALLERGIES: NKDA. FAMILY HISTORY: Negative in regards to this specific problem. SOCIAL HISTORY: Daily smoker for 20 years. No alcohol use. REVIEW OF SYSTEMS: Twelve systems reviewed per admission assessment. No chest pain or palpitations other systems negative or noncontributory as above and per preadmission questionnaire. PHYSICAL EXAMINATION: GENERAL: No acute distress. HEENT: Sclera nonicteric. NECK: No JVD. CHEST: Equal excursion, nonlabored breathing. CVS: Regular rhythm and pulse. ABDOMEN: Soft. A little fat in the left inguinal area but he is not having any pain over that area. The pain he describes is left mid to upper abdomen. I do not feel any large hernia in the area. He is a little bit overweight. No palpable large hernia. No obvious large lipoma that can be palpated on my exam currently. No peritoneal signs. EXTREMITIES: No significant edema. NEURO: Alert, moving extremities grossly symmetrically. LAB DATA AND TESTS: HIV was nonreactive. His liver function tests apparently unremarkable. Total bilirubin 0.3. White blood cell count 6.9, hemoglobin 12, PLT 206,000. Cardiac enzymes were negative. Lactic acid normal. IMPRESSION: Some left abdominal pain worse when he eats the past four or five weeks of unclear etiology. He had negative EGD, negative gallbladder ultrasound. CT scan apparently unremarkable. There is fat palpable left inguinal area but he denies pain in that particular area so unclear etiology. The fact that the symptoms worse when he eats will check HIDA to rule out atypical pain radiation from biliary dyskinesia or chronic cholecystitis also probably benefit from colonoscopy to rule out any colon lesion causing symptoms but the differential could include musculoskeletal, some back issues and may want to consider working up the back if the HIDA and colonoscope are negative. Otherwise he might need to get an opinion from a pain specialist or even consider GI referral for consideration of endoscopic ultrasound to rule out other small pancreatic issues of his pain. Either way no emergent surgery necessary. Again will order HIDA and if needed colonoscopy by Dr. Samayoa who did his EGD. If those are negative consider back work up with pain specialist or endoscopic ultrasound referral. No emergent surgery necessary. This patient was seen for Dr. Trev Hooker who was aviation survival technician for our group today.
[2017-02-25] MEDS: DILAUDID 2 MG INJECTION IV PRN ×4 (09:11→22:33)
[2017-02-25] MEDS: Ecotrin 325 MG PO SCH (09:23)
[2017-02-25] MEDS: Protonix 40MG Tablet PO SCH (09:23)
[2017-02-25] MEDS: Zestril 20 MG PO SCH ×2 (09:23→21:45)
[2017-02-25] MEDS: Valium 5 MG PO SCH ×3 (09:24→21:44)
[2017-02-25] MEDS: hydroDIURIL 25 MG PO SCH ×2 (09:25→21:45)
[2017-02-25] MEDS: Pepcid 20 MG VIAL IV SCH ×2 (09:26→21:44)
[2017-02-25] MEDS: Zofran 4 MG/2 ML VIAL IV PRN ×2 (09:35→15:09)
[2017-02-25] MEDS ORDERED: Golytely Solution 4000 ML PO ONE (12:00)
[2017-02-25] MEDS: Dextrose 5% -0.45 NaCl 1000 ML 1,000 ML IV SCH (14:37)
[2017-02-25] MEDS: NORVASC 5 MG PO SCH (16:59)
[2017-02-25] MEDS: Phenergan 25 MG INJ IV PRN (18:18)
[2017-02-25] MEDS: Nicoderm CQ 21 MG TOP SCH (20:33)
[2017-02-26] MEDS ORDERED: Lactated Ringers 1,000 ML IV SCH (04:30)
[2017-02-26] MEDS: Phenergan 25 MG INJ IV PRN (04:39)
[2017-02-26 07:16] VITALS: O2SAT 94
[2017-02-26] MEDS: Dextrose 5% -0.45 NaCl 1000 ML 1,000 ML IV SCH (08:29)
--- NOTE | 2017-02-26 08:40 | PCM.DS ---
Discharge Summary Date of Admission: 02/21/17 02:04 Admitting Physician: ARIEL MIDDLETON Consults: Consults on Case 02/24/17 11:14 Consult Surgery ROUTINE Primary Care Provider: ARIEL MIDDLETON Allergies Allergies NKA Allergy (Mild, Verified 02/20/17 22:42) [facility] Summary - Hospital Course Hospital Course: patient was admitted with recurrent epigastric pain, LUQ and LLQ pain and intractable vomiting. CT scan shows fatty liver and a left inguinal hernia but no obstruction. he had a negative gallbladder u/s, recently had EGD as an outpatient and was unremarkable. colonoscopy on date of discharge was unremarkable, plan for HIDA tomorrow per surgery consult recommendation. discussed with the patient and his and recommend that he followup with GI as an outpatient. he is tolerating po intake now. - Vitals & Intake/Output Vital Signs: Vital Signs Temperature 98.2 F 02/26/17 07:15 Pulse Rate 63 02/26/17 07:15 Respiratory Rate 18 02/26/17 07:15 Blood Pressure 111/76 02/26/17 07:15 O2 Sat by Pulse Oximetry 94 L 02/26/17 07:15 Intake & Output: Intake & Output 02/23/17 02/24/17 02/25/17 02/26/17 11:59 11:59 11:59 11:59 Intake Total 3558 2497 2961 5289 Output Total 2675 3450 400 1200 Balance 883 -953 2561 4089 Weight 88.536 kg 88.932 kg 85.757 kg 85.729 kg - Lab Result Diagrams: 02/25/17 05:45 02/25/17 05:45 - Radiology Exams Ordered Rad Exams-Entire Visit: Radiology Procedures Category Date Time Status HIDA-GALL BLADDER [NUCMED] Urgent Exams 02/27/17 14:35 Ordered - Procedures and Test Procedures and Tests throughout Hospitalization: Therapy Orders & Screens 02/21/17 05:30 EKG ROUTINE Comment: Diagnosis: Shortness of Breath 02/22/17 05:00 EKG DAILY Comment: Diagnosis: Shortness of Breath 02/23/17 05:00 EKG DAILY Comment: Diagnosis: Shortness of Breath 02/24/17 05:00 EKG DAILY Comment: Diagnosis: Shortness of Breath Discharge Exam General Appearance: no apparent distress, alert Respiratory Exam: normal breath sounds, lungs clear, No respiratory distress Cardiovascular Exam: regular rate/rhythm, normal heart sounds Gastrointestinal/Abdomen Exam: soft, tenderness, No distention, No mass, No guarding Extremity Exam: normal inspection, normal range of motion Final Diagnosis/Problem List - Final Discharge Diagnosis/Problem (1) Abdominal pain Current Visit: Yes Status: Acute Assessment & Plan: no obvious etiology found, will have him f/u with Dr Mata as outpatient, if HIDA is negative may need an EUS or further workup based on his recommendations since no obvious etiology has been identified. I don't feel as though the fatty liver or inguinal hernia explain his symptomatology or disease process. will send home with temporary supply of norco and anti-emetics until further workup can be completed. (2) Intractable vomiting Current Visit: Yes Status: Acute (3) Fatty liver Current Visit: Yes Status: Acute (4) Left inguinal hernia Current Visit: Yes Status: Acute - Discharge Disposition: Home, Self-Care Condition: Stable Prescriptions: New Hydrocodone Bit/Acetaminophen [[place] 5-325 Tablet] 1 each PO Q6H PRN PRN #30 tablet PRN Reason: Pain Amlodipine Besylate 5 mg [Norvasc 5 mg] 5 mg PO QAM #30 tablet Promethazine HCl 12.5 mg PO Q6H PRN PRN #30 tablet PRN Reason: Nausea PANTOPRAZOLE 40 mg Tablet [Protonix 40MG Tablet] 40 mg PO DAILY #30 tab Continue Lisinopril/Hydrochlorothiazide [Lisinopril-Hctz 20-12.5 mg Tab] 1 tab PO BID Diazepam [Valium] 10 mg PO TID Polyethylene Glycol 3350 17 gm [Miralax Powder 17GM PACKET] 1 pack PO DAILY Discontinued Omeprazole 20 MG [Prilosec 20 mg] 20 mg PO DAILY Additional Instructions: return for HIDA scan as outpatient tomorrow as ordered. see Dr Middleton in a week, please schedule with Dr Mata first available appointment. Follow up with: ARIEL MIDDLETON MD [Primary Care Provider] - TRUONG MATA MD [NON-STAFF PHY W/O PRIVILEGES] - 1 Week
[2017-02-26] MEDS: Protonix 40MG Tablet PO SCH (10:53)
[2017-02-26] MEDS: hydroDIURIL 25 MG PO SCH (10:53)
[2017-02-26] MEDS: Ecotrin 325 MG PO SCH (10:53)
[2017-02-26] MEDS: Pepcid 20 MG VIAL IV SCH (10:53)
[2017-02-26] MEDS: Zestril 20 MG PO SCH (10:54)
[2017-02-26] MEDS: NORVASC 5 MG PO SCH (10:54)
[2017-02-26] MEDS: ZOFRAN ODT 4 MG PO PRN (11:00)
[2017-02-26 11:04] VITALS: BP 128/85; PULSE 66
--- NOTE | 2017-02-26 11:14 | OP ---
SURGERY DATE/TIME: 02/26/2017 0723 PREOPERATIVE DIAGNOSES: 1) Left lower quadrant abdominal pain. 2) Family history of colon cancer. POSTOPERATIVE DIAGNOSIS: Normal colon. PROCEDURE: Diagnostic colonoscopy. SURGEON: Marco Samayoa M.D. ANESTHESIA: MAC by Haroon Javris CRNA. ESTIMATED BLOOD LOSS: None. SPECIMENS: None. DESCRIPTION OF PROCEDURE: After informed written consent was obtained, the patient was taken to the endoscopy suite. He underwent monitored anesthesia and digital rectal exam showed normal sphincter tone and no internal lesions. The scope was inserted into the rectum and sequentially the entire colonic mucosa was traversed. The level of cecum was reached and verified with direct visualization of ileocecal valve. Upon withdrawal careful mucosal inspection revealed no gross abnormalities. Prep was noted to be fair as there was significant liquid stool throughout several portions of the colon which was suctioned to the best of our ability to aid in view but again no obvious mucosal abnormalities were identified. Prior to withdrawal retroflexion was performed and showed no internal lesions. The scope was removed and the patient was transferred to the recovery room in excellent condition.
[2017-02-26] MEDS ORDERED: Versed 2 MG/2 ML Injection IV ONE (11:29)
[2017-02-26] MEDS ORDERED: DIPRIVAN 200 MG/20 ML IV ONE (11:29)
[2017-02-27 12:23] LABS: H.Pylori Stool Ag. EIA Negative (Negative); Source H. Pylori Ag. Feces
== END 2017-02-26 11:30 | disposition home or self-care (01) ==
LOC: ED 20:47 → MED SURG 02-21 02:04
PROVIDERS: ADMIT Family Medicine; ATTEND Family Medicine
PROC: 0DJD8ZZ Inspection of Lower Intestinal Tract, Via Natural or Artificial Opening Endoscopic (ICD-10-PCS; principal; 2017-02-26)
DX: R10.32 Left lower quadrant pain (principal); R11.10 Vomiting, unspecified; K76.0 Fatty (change of) liver, not elsewhere classified; K40.90 Unilateral inguinal hernia, without obstruction or gangrene, not specified as recurrent; I10 Essential (primary) hypertension; F41.9 Anxiety disorder, unspecified; R73.9 Hyperglycemia, unspecified; K21.9 Gastro-esophageal reflux disease without esophagitis; R19.7 Diarrhea, unspecified; R53.83 Other fatigue; R23.2 Flushing; R07.89 Other chest pain; Z79.899 Other long term (current) drug therapy; Z72.0 Tobacco use; Z80.0 Family history of malignant neoplasm of digestive organs
CPT/HCPCS: 00810; 36000; 36415; 74176; 76705; 80053; 80061; 81000; 81002; 82150; 82962; 83036; 83605; 83690; 83721; 84484; 85025; 86701; 86702; 87086; 87338; 87389; 93005; 93041; 93268; 96360; 96361; 96365; 96372; 96374; 96375; 99285; G0378; J1170; J1200; J2250; J2405; J2550; J2704; Q0162; A9270-GY

== ENCOUNTER 2017-04-28 22:29 | Observation (INO) | payer BC, OTHER ==
--- NOTE | 2017-04-28 22:55 | ERPHSYRPT ---
- History of Present Illness Time Seen by Provider: 04/28/17 22:43 Historian: patient Exam Limitations: no limitations Physician History: 36 y/o male comes to the ER with complaints of constant nausea and vomiting for the past 2 days. Pt says he has unable to keep anything down. Pt also admits to diffuse abdominal pain. Pt has a history of GB sludge and has had this issue since December of last year. Pt describes the pain as sharp, constant, 8/10, and not relieved by norco. No fever, chills, constipation, diarrhea, or urinary symptoms. Timing/Duration: day(s) Activities at Onset: none Quality: sharpness Abdominal Pain Onset Location: generalized abdomen Pain Radiation: no radiation Severity of Pain-Max: severe Severity of Pain-Current: severe Modifying Factors: Improves With: nothing Associated Symptoms: loss of appetite, nausea, neck pain, vomiting Previous symptoms: no prior history Allergies/Adverse Reactions: NKA Allergy (Mild, Verified 04/28/17 22:53) NKA Home Medications: Lisinopril/Hydrochlorothiazide [Lisinopril-Hctz 20-12.5 mg Tab] 1 tab PO BID [History] Diazepam [Valium] 10 mg PO TID 01/14/17 [History] Polyethylene Glycol 3350 17 gm [Miralax Powder 17GM PACKET] 1 pack PO DAILY 02/21/17 [History] Hx Tetanus, Diphtheria Vaccination/Date Given: Yes Hx Influenza Vaccination/Date Given: No Hx Pneumococcal Vaccination/Date Given: No - Review of Systems Constitutional: No Fever, No Chills Eyes: No Symptoms Ears, Nose, & Throat: No Symptoms Respiratory: No Cough, No Dyspnea Cardiac: No Chest Pain, No Edema, No Syncope Abdominal/Gastrointestinal: Abdominal Pain, Nausea, Vomiting, No Diarrhea, No Constipation Genitourinary Symptoms: No Dysuria Musculoskeletal: No Back Pain, No Neck Pain Skin: No Rash Neurological: No Dizziness, No Focal Weakness, No Sensory Changes Psychological: No Symptoms Endocrine: No Symptoms All Other Systems: Reviewed and Negative - Past Medical History Pertinent Past Medical History: Yes Neurological History: No Pertinent History ENT History: No Pertinent History Cardiac History: Hypertension, Other Respiratory History: No Pertinent History Endocrine Medical History: No Pertinent History Musculoskeletal History: Degenerative Disk Disease, Fractures GI Medical History: GERD History: No Pertinent History Psycho-Social History: Anxiety Male Reproductive Disorders: No Pertinent History Other Medical History: R HAND FX. recent tachycardia and vomiting/ difficult swallowing - Past Surgical History Past Surgical History: Yes Neuro Surgical History: No Pertinent History Cardiac: No Pertinent History Respiratory: No Pertinent History Gastrointestinal: Hernia Repair Genitourinary: No Pertinent History Musculoskeletal: Orthopedic Surgery Male Surgical History: No Pertinent History Other Surgical History: R HAND - Social History Smoking Status: Heavy tobacco smoker How long have you smoked: 20 years Exposure to second hand smoke: No Drug Use: none Patient Lives Alone: No - Nursing Vital Signs Nursing Vital Signs: Initial Vital Signs Temperature 98.4 F 04/28/17 22:42 Pulse Rate 108 H 04/28/17 22:42 Respiratory Rate 18 04/28/17 22:42 Blood Pressure 117/57 04/28/17 22:42 O2 Sat by Pulse Oximetry 95 04/28/17 22:42 Pain Scale Pain Intensity 6 - Physical Exam General Appearance: mild distress, alert Eye Exam: PERRL/EOMI, eyes nml inspection Ears, Nose, Throat Exam: normal ENT inspection, pharynx normal, moist mucous membranes Neck Exam: normal inspection, non-tender, supple, full range of motion Respiratory Exam: normal breath sounds, lungs clear, No respiratory distress Cardiovascular Exam: regular rate/rhythm, normal heart sounds Gastrointestinal/Abdomen Exam: soft, normal bowel sounds, tenderness, No distention, No mass, No guarding, No rebound Back Exam: normal inspection, normal range of motion, No CVA tenderness, No vertebral tenderness Extremity Exam: normal inspection, normal range of motion, pelvis stable Neurologic Exam: alert, oriented x 3, cooperative, normal mood/affect, nml cerebellar function, sensation nml, No motor deficits Skin Exam: normal color, warm, dry - Course Nursing assessment & vital signs reviewed: Yes Ordered Tests: Active Orders 24 hr Category Date Time Status IV Insertion STAT Care 04/28/17 22:56 Active NPO (ED) STAT Care 04/28/17 22:56 Active ABDOMEN AND PELVIS W CONTRAST [CT] Stat Exams 04/28/17 22:56 Taken AMYLASE Stat Lab 04/28/17 22:50 Completed CBC W DIFF Stat Lab 04/28/17 22:50 Completed CMP Stat Lab 04/28/17 22:50 Completed LIPASE Stat Lab 04/28/17 22:50 Completed Lactic Acid Stat Lab 04/28/17 23:32 Completed Lactic Acid Stat Lab 04/29/17 01:32 Ordered Medication Summary Generic Name Dose Route Start Last Admin Trade Name Freq PRN Reason Stop Dose Admin Potassium Chloride 20 meq in 100 mls @ 50 mls/hr 04/28/17 23:41 04/29/17 00: 03 Potassium Chloride 20 Meq In Water 100ml IV 04/29/17 01:40 50 mls/hr STAT ONE Administration Sodium Chloride 1,000 mls @ 100 mls/hr 04/29/17 00:15 04/29/17 00:07 Sodium Chloride 0.9% 1000 Ml IV 05/29/17 00:14 100 mls/hr .Q10H MARC Administration Discontinued Medications Generic Name Dose Route Start Last Admin Trade Name Freq PRN Reason Stop Dose Admin Sodium Chloride 1,000 mls @ 999 mls/hr 04/28/17 22:56 04/28/17 23:09 Sodium Chloride 0.9% 1000 Ml IV 04/28/17 23:56 999 mls/hr .Q1H1M STA Administration Sodium Chloride Confirm 04/28/17 23:09 Sodium Chloride 0.9% 1000 Ml Administered 04/28/17 23:10 Dose 1,000 mls @ ud .ROUTE .STK-MED ONE Potassium Chloride Confirm 04/29/17 00:03 Potassium Chloride 20 Meq In Water 100ml Administered 04/29/17 00:04 Dose 100 mls @ ud IV .STK-MED ONE Ketorolac Tromethamine 30 mg 04/28/17 22:56 04/28/17 23:09 Toradol 30 Mg Injection IV 04/28/17 22:57 30 mg STAT ONE Administration Ketorolac Tromethamine Confirm 04/28/17 23:08 Toradol 30 Mg Injection Administered 04/28/17 23:09 Dose 30 mg .ROUTE .STK-MED ONE Ondansetron HCl 4 mg 04/28/17 22:56 04/28/17 23:09 Zofran 4 Mg/2 Ml Vial IV 04/28/17 22:57 4 mg STAT ONE Administration Ondansetron HCl Confirm 04/28/17 23:08 Zofran 4 Mg/2 Ml Vial Administered 04/28/17 23:09 Dose 4 mg .ROUTE .STK-MED ONE Pantoprazole Sodium 40 mg 04/29/17 00:54 04/29/17 00:56 Protonix 40 Mg Iv IV 04/29/17 00:55 40 mg STAT ONE Administration Pantoprazole Sodium Confirm 04/29/17 00:56 Protonix 40 Mg Iv Administered 04/29/17 00:57 Dose 40 mg IV .STK-MED ONE Promethazine HCl 12.5 mg 04/29/17 01:36 Phenergan 25 Mg Inj IV 04/29/17 01:37 STAT ONE Lab/Rad Data: Laboratory Result Diagrams 04/28/17 22:50 04/28/17 22:50 Laboratory Results 04/28/17 04/28/17 04/28/17 Range/Units 23:32 22:50 22:50 WBC 13.1 H (4.0-10.5) K/mm3 RBC 4.84 (4.1-5.6) M/mm3 Hgb 15.1 (12.5-18.0) gm/dl Hct 44.4 (42-50) % MCV 91.7 (78-100) fl MCH 31.2 (26-32) pg MCHC 34.0 (32-36) g/dl RDW 13.8 (11.5-14.0) % Plt Count 339 (150-450) K/mm3 MPV 9.8 H (6-9.5) fl Gran % 73.4 H (36.0-66.0) % Lymphocytes % 18.7 L (24.0-44.0) % Monocytes % 7.0 (0.0-12.0) % Eosinophils % 0.5 (0.00-5.0) % Basophils % 0.4 (0.0-0.4) % Basophils # 0.05 (0-0.4) Sodium 137 (136-145) mEq/L Potassium 2.9 L* (3.5-5.1) mEq/L Chloride 97 L (98-107) mEq/L Carbon Dioxide 25.4 (21-32) mEq/L Anion Gap 17.6 H (5-15) MEQ/L BUN 10 (9-20) mg/dL Creatinine 1.14 (0.55-1.30) mg/dl Estimated GFR > 60 ML/MIN Glucose 124 H (70-110) MG/DL Lactic Acid 2.0 (0.4-2.0) Calcium 9.9 (8.5-10.1) mg/dL Total Bilirubin 0.50 (0.2-1.0) mg/dL AST 51 H (15-37) U/L ALT 117 H (12-78) U/L Alkaline Phosphatase 83 (46-116) U/L Serum Total Protein 8.6 H (6.4-8.2) gm/dL Albumin 4.6 (3.4-5.0) g/dL Amylase 33 (25-115) U/L Lipase 89 (73-393) U/L Ur Collection Type Urine Color (YELLOW) Urine Appearance (CLEAR) Urine pH (5-6) Ur Specific [place] (1.005-1.025) Urine Protein (Negative) Urine Ketones (NEGATIVE) Urine Blood (0-5) Claudio/ul Urine Nitrite (NEGATIVE) Urine Bilirubin (NEGATIVE) Urine Urobilinogen (0-1) mg/dL Ur Leukocyte Esterase (NEGATIVE) Urine Microscopic RBC (0-2) /HPF Urine Bacteria (NEGATIVE) /HPF Urine Mucus (NEGATIVE) /HPF Urine Culture Reflexed (NO) Urine Glucose (NEGATIVE) mg/dL Urine Opiates Level (NEGATIVE) Ur Methadone (NEGATIVE) Urine Barbiturates (NEGATIVE) Ur Phencyclidine (PCP) (NEGATIVE) Urine Amphetamine (NEGATIVE) U Benzodiazepine Level (NEGATIVE) Urine Cocaine (NEGATIVE) Urine Marijuana (THC) (NEGATIVE) Specimen Received 04/28/17 04/28/17 Range/Units 00:30 00:30 WBC (4.0-10.5) K/mm3 RBC (4.1-5.6) M/mm3 Hgb (12.5-18.0) gm/dl Hct (42-50) % MCV (78-100) fl MCH (26-32) pg MCHC (32-36) g/dl RDW (11.5-14.0) % Plt Count (150-450) K/mm3 MPV (6-9.5) fl Gran % (36.0-66.0) % Lymphocytes % (24.0-44.0) % Monocytes % (0.0-12.0) % Eosinophils % (0.00-5.0) % Basophils % (0.0-0.4) % Basophils # (0-0.4) Sodium (136-145) mEq/L Potassium (3.5-5.1) mEq/L Chloride (98-107) mEq/L Carbon Dioxide (21-32) mEq/L Anion Gap (5-15) MEQ/L BUN (9-20) mg/dL Creatinine (0.55-1.30) mg/dl Estimated GFR ML/MIN Glucose (70-110) MG/DL Lactic Acid (0.4-2.0) Calcium (8.5-10.1) mg/dL Total Bilirubin (0.2-1.0) mg/dL AST (15-37) U/L ALT (12-78) U/L Alkaline Phosphatase (46-116) U/L Serum Total Protein (6.4-8.2) gm/dL Albumin (3.4-5.0) g/dL Amylase (25-115) U/L Lipase (73-393) U/L Ur Collection Type CLEAN CATCH Urine Color YELLOW (YELLOW) Urine Appearance CLEAR (CLEAR) Urine pH 6.0 (5-6) Ur Specific [place] 1.010 (1.005-1.025) Urine Protein NEGATIVE (Negative) Urine Ketones NEGATIVE (NEGATIVE) Urine Blood NEGATIVE (0-5) Claudio/ul Urine Nitrite NEGATIVE (NEGATIVE) Urine Bilirubin NEGATIVE (NEGATIVE) Urine Urobilinogen NORMAL (0-1) mg/dL Ur Leukocyte Esterase NEGATIVE (NEGATIVE) Urine Microscopic RBC 0-2 (0-2) /HPF Urine Bacteria RARE (NEGATIVE) /HPF Urine Mucus SLIGHT (NEGATIVE) /HPF Urine Culture Reflexed NO (NO) Urine Glucose NEGATIVE (NEGATIVE) mg/dL Urine Opiates Level NEG. (NEGATIVE) Ur Methadone NEG. (NEGATIVE) Urine Barbiturates NEG. (NEGATIVE) Ur Phencyclidine (PCP) NEG. (NEGATIVE) Urine Amphetamine NEG. (NEGATIVE) U Benzodiazepine Level POS. (NEGATIVE) Urine Cocaine NEG. (NEGATIVE) Urine Marijuana (THC) POS. (NEGATIVE) Specimen Received 04-29-17 - Progress Progress: unchanged Progress Note: 04/29/17 01:[address] scan abd/pelvis shows chronic colitis and gastritis. The patient had another episode of nausea and vomiting in the ER and looks very weak. Pt has a K of 2.9 and was started on a K-rider. Pt was given 1 liter of fluids and will need additional NS fluids. Pt has a white count of 13,000, but no fever. Pt has been admitted to Dr Jennings for chronic colitis and nausea with vomiting. 04/29/17 01:39 - Departure Time of Disposition: 01:41 Departure Disposition: Observation Clinical Impression: Colitis Intractable vomiting Qualifiers: Vomiting type: unspecified Nausea presence: with nausea Qualified Code(s): R11.2 - Nausea with vomiting, unspecified Condition: Fair Critical Care Time: No Referrals: ARIEL MIDDLETON MD [Primary Care Provider] -
[2017-04-28] MEDS ORDERED: Sodium Chloride 0.9% 1000 ML 1,000 ML IV STA (22:56)
[2017-04-28] MEDS ORDERED: Zofran 4 MG/2 ML VIAL IV ONE (22:56)
[2017-04-28] MEDS ORDERED: TORAdol 30 mg Injection IV ONE (22:56)
[2017-04-28 23:07] LABS: BASOPHIL % 0.4 % (0.0-0.4); Basophil (Absolute #) 0.05 (0-0.4); Eosinophil % 0.5 % (0.00-5.0); Eosinophil (Absolute #) 0.06 (0-0.5); Granulocyte Absolute (ANC) 9.62 (1.4-6.9); Granulocytes % 73.4 % (36.0-66.0); Hematocrit 44.4 % (42-50); Hemoglobin 15.1 gm/dl (12.5-18.0); Lymphocyte (Absolute #) 2.44 (1.0-4.6); Lymphocytes % 18.7 % (24.0-44.0); Mean Cell Volume 91.7 fl (78-100); Mean Corpuscular Hemoglobin 31.2 pg (26-32); Mean Platelet Volume 9.8 fl (6-9.5); Monocyte (Absolute #) 0.91 (0.0-1.3); Platelet Count 339 K/mm3 (150-450); Red Blood Count 4.84 M/mm3 (4.1-5.6); Red Cell Distribution Width 13.8 % (11.5-14.0); White Blood Count 13.1 K/mm3 (4.0-10.5)
[2017-04-28] MEDS ORDERED: TORAdol 30 mg Injection ONE (23:08)
[2017-04-28] MEDS ORDERED: Zofran 4 MG/2 ML VIAL ONE (23:08)
[2017-04-28] MEDS ORDERED: Sodium Chloride 0.9% 1000 ML 1,000 ML ONE (23:09)
[2017-04-28 23:27] LABS: ALBUMIN 4.6 g/dL (3.4-5.0); ALKALINE PHOSPHATASE 83 U/L (46-116); AMYLASE 33 U/L (25-115); ANION GAP 17.6 MEQ/L (5-15); BLOOD UREA NITROGEN 10 mg/dL (9-20); CHLORIDE 97 mEq/L (98-107); Calcium 9.9 mg/dL (8.5-10.1); Carbon Dioxide 25.4 mEq/L (21-32); Creatinine 1 1.14 mg/dl (0.55-1.30); EST GLOMERULAR FILTRATION RATE > 60 ML/MIN; Glucose 124 MG/DL (70-110); LIPASE 89 U/L (73-393); SGOT/AST 51 U/L (15-37); SGPT/ALT 117 U/L (12-78); SODIUM 137 mEq/L (136-145); Total Protein 8.6 gm/dL (6.4-8.2)
[2017-04-28 23:29] LABS: Potassium 2.9 mEq/L (3.5-5.1)
[2017-04-28] MEDS ORDERED: POTASSIUM CHLORIDE 20 mEq IN WATER 100ML 20 MEQ/100 ML BAG IV ONE (23:41)
[2017-04-29] MEDS ORDERED: POTASSIUM CHLORIDE 20 mEq IN WATER 100ML 100 ML IV ONE (00:03)
[2017-04-29] MEDS ORDERED: Sodium Chloride 0.9% 1000 ML 1,000 ML IV SCH (00:15)
[2017-04-29 00:31] LABS: Appearance CLEAR (CLEAR); Bilirubin NEGATIVE (NEGATIVE); Blood NEGATIVE Ery/ul (0-5); Glucose NEGATIVE (NEGATIVE); Ketones NEGATIVE (NEGATIVE); Leukocyte Esterase NEGATIVE (NEGATIVE); Nitrite NEGATIVE (NEGATIVE); Protein,Urine Dip NEGATIVE (Negative); Urobilinogen NORMAL mg/dL (0-1)
[2017-04-29 00:37] LABS: Amphetamine,Urine NEG. (NEGATIVE); Barbiturate,Urine NEG. (NEGATIVE); Benzodiazepine,Urine POS. (NEGATIVE); Cocaine,Urine NEG. (NEGATIVE); Methadone,Urine NEG. (NEGATIVE); Opiate,Urine NEG. (NEGATIVE); PCP,Urine NEG. (NEGATIVE); THC,Urine POS. (NEGATIVE)
[2017-04-29 00:41] LABS: Bacteria RARE /HPF (NEGATIVE); Mucus SLIGHT /HPF (NEGATIVE)
[2017-04-29] MEDS ORDERED: PROTONIX 40 MG IV IV ONE ×2 (00:54→00:56)
[2017-04-29] MEDS ORDERED: Phenergan 25 MG INJ IV ONE (01:36)
[2017-04-29] MEDS ORDERED: Phenergan 25 MG INJ ONE (01:41)
[2017-04-29] MEDS ORDERED: TORAdol 30 mg Injection IV PRN (01:42)
[2017-04-29] MEDS ORDERED: TYLENOL 325 MG PO PRN (01:42)
[2017-04-29] MEDS: Sodium Chloride 0.9% 1000 ML 1,000 ML IV SCH ×3 (02:20→19:40)
[2017-04-29] MEDS ORDERED: MORPHINE SULFATE 2 MG INJ IV PRN (02:59)
[2017-04-29] MEDS ORDERED: Hydromorphone 1 mg/ml Ampule IV PRN (03:08)
[2017-04-29 05:34] LABS: BASOPHIL % 0.4 % (0.0-0.4); Basophil (Absolute #) 0.04 (0-0.4); Eosinophil % 1.2 % (0.00-5.0); Eosinophil (Absolute #) 0.12 (0-0.5); Granulocyte Absolute (ANC) 5.46 (1.4-6.9); Granulocytes % 56.3 % (36.0-66.0); Hematocrit 36.3 % (42-50); Lymphocyte (Absolute #) 3.46 (1.0-4.6); Lymphocytes % 35.6 % (24.0-44.0); Mean Cell Volume 94.8 fl (78-100); Mean Corpuscular Hemoglobin 31.3 pg (26-32); Mean Corpuscular Hgb Concent. 33.1 g/dl (32-36); Mean Platelet Volume 9.7 fl (6-9.5); Monocyte (Absolute #) 0.63 (0.0-1.3); Monocytes % 6.5 % (0.0-12.0); Platelet Count 259 K/mm3 (150-450); Red Blood Count 3.83 M/mm3 (4.1-5.6); Red Cell Distribution Width 13.8 % (11.5-14.0); White Blood Count 9.7 K/mm3 (4.0-10.5)
[2017-04-29 06:30] LABS: ANION GAP 9.5 MEQ/L (5-15); BLOOD UREA NITROGEN 10 mg/dL (9-20); CHLORIDE 104 mEq/L (98-107); Calcium 8.5 mg/dL (8.5-10.1); Carbon Dioxide 29.1 mEq/L (21-32); Creatinine 1 1.11 mg/dl (0.55-1.30); EST GLOMERULAR FILTRATION RATE > 60 ML/MIN; Glucose 101 MG/DL (70-110); Potassium 3.2 mEq/L (3.5-5.1); SODIUM 139 mEq/L (136-145)
--- NOTE | 2017-04-29 09:00 | XRAY ---
Indication: Left abdominal pain. Nausea, vomiting, diarrhea. History diverticulosis. Multiple contiguous images obtained through the abdomen and pelvis using 80 cc Isovue 370 contrast only. Comparison: January 14 and February 20, 2017. Lung bases remain clear with stable partially visualized medial lingular bullae. Heart is not enlarged. Noncontrasted stomach and bowel loops again appear nonobstructed. Normal appendix. No free fluid/air. Stable diffuse fatty liver. Remaining liver, gallbladder, pancreas, spleen, adrenal glands, kidneys, ureters, bladder, and aorta appear unremarkable. No pathologic retroperitoneal lymphadenopathy Osseous structures intact. Stable moderate size fatty left inguinal hernia. Impression: 1. Stable fatty liver and fatty left inguinal hernia. 2. No new or acute intra-abdominal/pelvic abnormalities on this contrasted exam. Comment: Preliminary interpretation was made by [facility]. No critical discrepancy. CT DI 22.42
--- NOTE | 2017-04-29 09:18 | PCM.HP ---
History of Present Illness - Chief Complaint Chief Complaint: Colitis with N/V History of Present Illness: is a 36 year old male pt of Dr. Samayoa who was admitted early this morning for abd pain, n/v and diarrhea. Denies fever. Pain was periumbilical and epigastric. Was tolerating some po until yesterday. This morning feels a little better, ate a little toast now feeling nauseated. He has a history of bowel/abd issues for the past 6 mo or so, with multiple hospital admissions. Has had EGD and colonoscopy with Dr. Samayoa. Has seen Dr. Mata, recently had TEU. Was sent by Dr. Mata to Dr. Broussard for gallbladder removal but Dr. Broussard did HIDA with EF 45% so did not remove the gallbladder. Dr. Mata has pt set up for another HIDA scan this Friday (in 3d) . Pt's mom at bedside, she notes there is a FHx RA/lupus. Pt's dad had colon Ca. - Review of Systems Constitutional: No Fever Abdominal/Gastrointestinal: Abdominal Pain, Nausea, Vomiting, Diarrhea Psychological: No Anxiety, No Depression, No Suicidal Ideations All Other Systems: Reviewed and Negative Medications & Allergies Home Medications: Home Medication List Lisinopril/Hydrochlorothiazide [Lisinopril-Hctz 20-12.5 mg Tab] 1 tab PO BID [History Confirmed 04/29/17] Diazepam [Valium] 10 mg PO TID 01/14/17 [History Confirmed 04/29/17] Hydrocodone Bit/Acetaminophen [Biscoe 5-325 Tablet] 1 each PO Q6H PRN PRN #30 tablet 02/26/17 [Rx Confirmed 04/29/17] PANTOPRAZOLE 40 mg Tablet [Protonix 40MG Tablet] 40 mg PO DAILY #30 tab [Rx Confirmed 04/29/17] Promethazine HCl 12.5 mg PO Q6H PRN PRN #30 tablet 02/26/17 [Rx Confirmed ] Amlodipine Besylate 5 mg [Norvasc 5 mg] 5 mg PO QAM 04/29/17 [History Confirmed 04/29/17] Allergies/Adverse Reactions: Allergies Allergy/AdvReac Type Severity Reaction Status Date / Time NKA Allergy Mild Verified 04/28/17 22:53 - Past Medical History Past Medical History: Yes Neurological History: No Pertinent History ENT History: No Pertinent History Cardiac History: Hypertension, Other Respiratory History: No Pertinent History Endocrine Medical History: No Pertinent History Musculoskelatal History: Degenerative Disk Disease, Fractures GI Medical History: GERD History: No Pertinent History Pyscho-Social History: Anxiety Male Reproductive Disorders: No Pertinent History Comment: R HAND FX. recent tachycardia and vomiting/ difficult swallowing - Past Surgical History Past Surgical History: Yes Neuro Surgical History: No Pertinent History Cardiac History: No Pertinent History Respiratory Surgery: No Pertinent History GI Surgical History: Hernia Repair Genitourinary Surgical Hx: No Pertinent History Musculskeletal Surgical Hx: Orthopedic Surgery Male Surgical History: No Pertinent History Other Surgical History: R HAND - Social History Smoking Status: Current every day smoker How long have you smoked: 20 years Exposure to second hand smoke: Yes Alcohol: None Drug Use: none - Physical Exam Vital Signs: Vital Signs - 24 hr Temp Pulse Resp BP Pulse Ox 04/29/17 07:49 18 04/29/17 07:17 98.1 F 79 18 125/73 95 04/29/17 04:00 16 04/29/17 02:29 97.8 F 84 16 116/71 95 04/29/17 01:14 86 16 111/74 97 04/29/17 00:30 91 H 16 120/76 98 04/28/17 22:42 98.4 F 108 H 18 117/57 95 General Appearance: no apparent distress, alert Neurologic Exam: oriented x 3, cooperative Eye Exam: eyes nml inspection Ears, Nose, Throat Exam: moist mucous membranes Neck Exam: normal inspection, non-tender, No lymphadenopathy Respiratory Exam: normal breath sounds, lungs clear, No crackles/rales, No rhonchi, No wheezing Cardiovascular Exam: regular rate/rhythm, normal heart sounds, No murmur Gastrointestinal/Abdomen Exam: soft, normal bowel sounds, tenderness (throughout ), guarding (slightly at epigastrum), No distention, No mass, No rebound Results - Labs Lab/Micro Results: Lab Results-Last 24 Hours 04/29/17 04/29/17 Range/Units 05:20 05:20 WBC 9.7 (4.0-10.5) K/mm3 RBC 3.83 L (4.1-5.6) M/mm3 Hgb 12.0 L (12.5-18.0) gm/dl Hct 36.3 L (42-50) % MCV 94.8 (78-100) fl MCH 31.3 (26-32) pg MCHC 33.1 (32-36) g/dl RDW 13.8 (11.5-14.0) % Plt Count 259 (150-450) K/mm3 MPV 9.7 H (6-9.5) fl Gran % 56.3 (36.0-66.0) % Lymphocytes % 35.6 (24.0-44.0) % Monocytes % 6.5 (0.0-12.0) % Eosinophils % 1.2 (0.00-5.0) % Basophils % 0.4 (0.0-0.4) % Basophils # 0.04 (0-0.4) Sodium 139 (136-145) mEq/L Potassium 3.2 L (3.5-5.1) mEq/L Chloride 104 (98-107) mEq/L Carbon Dioxide 29.1 (21-32) mEq/L Anion Gap 9.5 (5-15) MEQ/L BUN 10 (9-20) mg/dL Creatinine 1.11 (0.55-1.30) mg/dl Estimated GFR > 60 ML/MIN Glucose 101 (70-110) MG/DL Calcium 8.5 (8.5-10.1) mg/dL - Other Procedures and Tests Respiratory Therapy 04/29/17 02:49 Smoking Cessation Education ONCE Assessment/Plan (1) Colitis Current Visit: Yes Status: Acute Assessment & Plan: on CT, with slightly elevated wbc count; however he is feeling better this morning. No on antibiotics, and in this pt with frequent abdominal complaints would try to hold off on abx if possible. Wonder about the possibility of some occult inflammatory bowel disease; does have positive family history. Will look at colonoscopy report; per pt was fine. Will go ahead and start some asacol since he is taking po. Code(s): K52.9 - NONINFECTIVE GASTROENTERITIS AND COLITIS, UNSPECIFIED (2) Abdominal pain Current Visit: No Status: Acute Code(s): R10.9 - UNSPECIFIED ABDOMINAL PAIN (3) Vomiting Current Visit: No Status: Resolved Qualifiers: Vomiting type: unspecified Vomiting Intractability: non-intractable Nausea presence: with nausea Qualified Code(s): R11.2 - Nausea with vomiting, unspecified Assessment & Plan: better; currently nauseated. Will scale back diet. Code(s): R11.10 - VOMITING, UNSPECIFIED
[2017-04-29] MEDS: Zofran 4 MG/2 ML VIAL IV PRN ×2 (09:36→17:21)
[2017-04-29] MEDS ORDERED: NORCO 5/325 MG PO PRN (09:47)
[2017-04-29] MEDS ORDERED: DELZICOL PO SCH (10:00)
[2017-04-29] MEDS ORDERED: NON-FORMULARY ITEM (Diazepam [Valium] 10 MG) PO SCH (10:00)
[2017-04-29] MEDS ORDERED: Protonix 40MG Tablet PO SCH (10:00)
[2017-04-29] MEDS ORDERED: NON-FORMULARY ITEM (Lisinopril/Hydrochlorothiazide [Lisinopril-Hctz 20-12.5 Mg Tab] 1 TAB) PO SCH (10:00)
[2017-04-29] MEDS ORDERED: NORVASC 5 MG PO SCH (10:00)
[2017-04-29] MEDS: hydroDIURIL 25 MG PO SCH ×2 (10:05→20:58)
[2017-04-29] MEDS: Zestril 20 MG PO SCH ×2 (10:06→20:58)
[2017-04-29] MEDS: Valium 5 MG PO SCH ×3 (10:07→20:58)
[2017-04-29] MEDS: DILAUDID 2 MG INJECTION IV PRN ×4 (10:14→22:26)
[2017-04-29] MEDS: ASACOL HD PO SCH ×3 (10:33→20:59)
[2017-04-30 03:25] LABS: COMPLEMENT C3 109 mg/dL (88-201)
[2017-04-30 03:39] VITALS: O2SAT 95
[2017-04-30] MEDS: Sodium Chloride 0.9% 1000 ML 1,000 ML IV SCH (05:30)
[2017-04-30 08:02] VITALS: BP 109/72; PULSE 78
--- NOTE | 2017-04-30 08:24 | PCM.DS ---
Discharge Summary Date of Admission: 04/29/17 02:03 Admitting Physician: KAIN DELANEY Primary Care Provider: ARIEL MIDDLETON Allergies Allergies NKA Allergy (Mild, Verified 04/28/17 22:53) [facility] Summary - Hospital Course Hospital Course: 36 year old male with recurrent, severe abdominal pain with vomiting. workup has included multiple CT scans, EGD/colonoscopy and has had EUS with Dr Mata. he apparently had some gallbladder sludge on EUS but HIDA was normal. he developed vomiting and diarrhea prior to arrival, they have resolved and he is tolerating po intake and would like to go home today. has 3D HIDA scheduled in [address] Mata as an outpatient. - Vitals & Intake/Output Vital Signs: Vital Signs Temperature 98.8 F 04/30/17 07:58 Pulse Rate 78 04/30/17 07:58 Respiratory Rate 18 04/30/17 07:58 Blood Pressure 109/72 04/30/17 07:58 O2 Sat by Pulse Oximetry 95 04/30/17 07:58 Intake & Output: Intake & Output 04/27/17 04/28/17 04/29/17 04/30/17 11:59 11:59 11:59 11:59 Intake Total 240 2347 Output Total 450 Balance 240 1897 Weight 86.1 kg - Lab Result Diagrams: 04/29/17 05:20 04/29/17 05:20 Lab Results-Last 24 Hrs: Lab Results-Last 24 Hours 04/29/17 04/29/17 Range/Units 13:45 13:45 ESR 17 H (0-15) mm/hr Rheumatoid Factor Scrn NEGATIVE (Negative) - Procedures and Test Procedures and Tests throughout Hospitalization: Therapy Orders & Screens 04/29/17 02:49 Smoking Cessation Education ONCE Comment: Diagnosis: Colitis with N/V Smoking Status: Current every day smoker How long have you smoked: 20 years Have you smoked in the past 12 months: Yes Approximately how many cigarettes per day: 1/2 paack Do you dip or chew tobacco: No Discharge Exam General Appearance: no apparent distress, alert Skin Exam: normal color, warm, dry Eye Exam: PERRL, EOMI, eyes nml inspection Ears, Nose, Throat Exam: normal ENT inspection, pharynx normal, moist mucous membranes Respiratory Exam: normal breath sounds, lungs clear, No respiratory distress Cardiovascular Exam: regular rate/rhythm, normal heart sounds Gastrointestinal/Abdomen Exam: soft, No tenderness, No mass Extremity Exam: normal inspection, normal range of motion Final Diagnosis/Problem List - Final Discharge Diagnosis/Problem (1) Abdominal pain Current Visit: Yes Status: Acute (2) Intractable vomiting Current Visit: Yes Status: Acute - Discharge Disposition: Home, Self-Care Condition: Good Prescriptions: Continue Lisinopril/Hydrochlorothiazide [Lisinopril-Hctz 20-12.5 mg Tab] 1 tab PO BID Diazepam [Valium] 10 mg PO TID Hydrocodone Bit/Acetaminophen [Amelia 5-325 Tablet] 1 each PO Q6H PRN PRN #30 tablet PRN Reason: Pain Promethazine HCl 12.5 mg PO Q6H PRN PRN #30 tablet PRN Reason: Nausea PANTOPRAZOLE 40 mg Tablet [Protonix 40MG Tablet] 40 mg PO DAILY #30 tab Amlodipine Besylate 5 mg [Norvasc 5 mg] 5 mg PO QAM Additional Instructions: take a bland diet, push fluids. have test with Dr Mata and followup with him Follow up with: TRUONG MATA MD [NON-STAFF PHY W/O PRIVILEGES] - 1 Week
[2017-04-30] MEDS ORDERED: DULCOLAX 5 MG PO PRN (08:40)
[2017-04-30] MEDS: Zofran 4 MG/2 ML VIAL IV PRN (09:23)
[2017-04-30 14:00] LABS: ANA Pattern Interp Detail See Result Note:
== END 2017-04-30 11:15 | disposition home or self-care (01) ==
LOC: ED 22:29 → MED SURG 04-29 02:03
PROVIDERS: ADMIT Internal Medicine; ATTEND Family Medicine
DX: R10.9 Unspecified abdominal pain (principal); R11.10 Vomiting, unspecified; K21.9 Gastro-esophageal reflux disease without esophagitis; F41.9 Anxiety disorder, unspecified
CPT/HCPCS: 36000; 36415; 74177; 80048; 80053; 80307; 81000; 82150; 83605; 83690; 85025; 85652; 86038; 86140; 86160; 86430; 96360; 96361; 99285; G0378; J1170; J1885; J2405; J2550; J3480; A9270-GY

== ENCOUNTER 2018-09-08 16:54 | Emergency (ER) | payer OTHER ==
--- NOTE | 2018-09-08 17:18 | ERPHSYRPT ---
- History of Present Illness Source: patient Exam Limitations: no limitations Patient Subjective Stated Complaint: pt reports upon waking today he had a severe headache as well as some neck pain. pt reports that he presented to the [facility] to be evaluated. pt reports he has been without his blood pressure medications for approx 4 months because he could not afford them due to a lack of insurance. Triage Nursing Assessment: pt is aox3, pupils perrl, afebrile, resps easy and non labored, cap refill < 3 seconds, radial pulses strong and equal, no edema appreciated. pt skin pink warm dry. Timing/Duration: today, worse Modifying Factors: Improves With: other (patient has not been taking his blood pressure medications for several months) Associated Symptoms: headaches, No nausea, No vomiting, No abdominal pain, No shortness of breath, No heartburn, No diaphoresis, No cough, No chills, No chest pain, No fever, No loss of appetite, No malaise, No rash, No syncope, No seizure, No weakness Hx Tetanus, Diphtheria Vaccination/Date Given: No Hx Influenza Vaccination/Date Given: No Hx Pneumococcal Vaccination/Date Given: No Immunizations Up to Date: Yes <ARIEL CORTES - Last Filed: 09/08/18 18:55> <KRUNAL DRAPER - Last Filed: 09/08/18 20:49> - History of Present Illness Time Seen by Provider: 09/08/18 17:15 Physician History: 37-year-old white male arrives with complaint of a headache he apparently began having a headache this morning he states he presented to the clinic and was told to come to the emergency room because his blood pressure was 170/100. Is not vomiting no fevers. Patient complains of a frontal headache he states he has not been taking his blood pressure medications for several months. Past medical history includes degenerative disc disease, GERD, anxiety, right hand fracture Past surgical history includes hernia repair, right hand surgery (ARIEL CORTES) Allergies/Adverse Reactions: NKA Allergy (Mild, Verified 09/08/18 17:15) NKA Home Medications: Omeprazole 40 mg PO DAILY 09/08/18 [History] - Review of Systems Constitutional: No Fever, No Chills Eyes: No Symptoms Ears, Nose, & Throat: No Symptoms Respiratory: No Cough, No Dyspnea Cardiac: No Chest Pain, No Edema, No Syncope Abdominal/Gastrointestinal: No Abdominal Pain, No Nausea, No Vomiting, No Diarrhea Genitourinary Symptoms: No Dysuria Musculoskeletal: No Back Pain, No Neck Pain Skin: No Rash Neurological: Headache, No Dizziness, No Focal Weakness, No Gait Changes, No Irritability, No Lethargy, No Paralysis, No Parasthesia, No Seizure, No Sensory Changes, No Speech Changes, No Tics, No Tremors, No Vertigo Psychological: No Symptoms Endocrine: No Symptoms All Other Systems: Reviewed and Negative <ARIEL CORTES - Last Filed: 09/08/18 18:55> - Past Medical History Pertinent Past Medical History: Yes Neurological History: No Pertinent History ENT History: No Pertinent History Cardiac History: Hypertension, Other Respiratory History: No Pertinent History Endocrine Medical History: No Pertinent History Musculoskeletal History: Degenerative Disk Disease, Fractures GI Medical History: GERD, Gallbladder Disease History: No Pertinent History Psycho-Social History: Anxiety Male Reproductive Disorders: No Pertinent History Other Medical History: R HAND FX. recent tachycardia and vomiting/ difficult swallowing - Past Surgical History Past Surgical History: Yes Neuro Surgical History: No Pertinent History Cardiac: No Pertinent History Respiratory: No Pertinent History Gastrointestinal: Cholecystectomy, Hernia Repair Genitourinary: No Pertinent History Musculoskeletal: Orthopedic Surgery Male Surgical History: No Pertinent History Other Surgical History: R HAND - Social History Smoking Status: Current every day smoker How long have you smoked: 20 years Exposure to second hand smoke: Yes Drug Use: none Patient Lives Alone: No <SEBASTIANARIEL EARLENE - Last Filed: 09/08/18 18:55> - Physical Exam General Appearance: no apparent distress, alert Eye Exam: PERRL/EOMI (this), eyes nml inspection Ears, Nose, Throat Exam: normal ENT inspection, TMs normal, pharynx normal, moist mucous membranes Neck Exam: normal inspection, non-tender, supple, full range of motion Respiratory Exam: normal breath sounds, lungs clear, No respiratory distress Cardiovascular Exam: regular rate/rhythm, normal heart sounds, normal peripheral pulses, capillary refill <2 sec Gastrointestinal/Abdomen Exam: soft Back Exam: normal inspection, normal range of motion, No CVA tenderness, No vertebral tenderness Extremity Exam: normal inspection, normal range of motion, pelvis stable Neurologic Exam: alert, oriented x 3, cooperative, bdc manager II-XII nml as tested, normal mood/affect, nml cerebellar function, nml station & gait, sensation nml, No motor deficits Skin Exam: normal color, warm, dry, No rash Lymphatic Exam: No adenopathy SpO2 Interpretation: normal (95%) SpO2: 95 <ARIEL CORTES - Last Filed: 09/08/18 18:55> - Nursing Vital Signs Nursing Vital Signs: Initial Vital Signs Temperature 98 F 09/08/18 16:59 Pulse Rate 72 09/08/18 16:59 Respiratory Rate 18 09/08/18 16:59 Blood Pressure 201/123 09/08/18 16:59 O2 Sat by Pulse Oximetry 95 09/08/18 16:59 Pain Scale Pain Intensity 5 - Course Nursing assessment & vital signs reviewed: Yes EKG Interpreted by Me: RATE (63 bpm), Sinus Rhythm, NORMAL AXIS, Other (EKG: Sinus rhythm, 63 beats per minute, normal axis, no acute ST or T wave changes, normal EKG) - CT Exams Head CT Interpretation: Discussed w/radiologist (normal CT head) <ARIEL CORTES - Last Filed: 09/08/18 18:55> Ordered Tests: Active Orders 24 hr Category Date Time Status EKG-ER Only STAT Care 09/08/18 17:13 Active IV Insertion STAT Care 09/08/18 17:13 Active ABDOMEN AND PELVIS W/0 CONTRAS [CT] Stat Exams 09/08/18 19:41 Taken HEAD WITHOUT CONTRAST [CT] Stat Exams 09/08/18 17:14 Taken CBC W DIFF Stat Lab 09/08/18 17:25 Completed CMP Stat Lab 09/08/18 17:25 Completed UA W/RFX UR CULTURE Stat Lab 09/08/18 18:20 Completed Urine Triage Profile Stat Lab 09/08/18 18:20 Completed Medication Summary Discontinued Medications Generic Name Dose Route Start Last Admin Trade Name Freq PRN Reason Stop Dose Admin Lisinopril 10 mg/ 0 mg 09/08/18 18:46 09/08/18 18:57 Hydrochlorothiazide 12.5 mg PO 09/08/18 18:47 10 mg 1XONLY STA Administration Hydralazine HCl 10 mg 09/08/18 18:20 09/08/18 18:29 Apresoline 20 Mg/Ml Inj IV 09/08/18 18:21 10 mg STAT ONE Administration Hydralazine HCl Confirm 09/08/18 18:27 Apresoline 20 Mg/Ml Inj Administered 09/08/18 18:28 Dose 20 mg .ROUTE .STK-MED ONE Morphine Sulfate 4 mg 09/08/18 17:51 09/08/18 17:58 Morphine Sulfate 4 Mg Inj IV 09/08/18 17:52 4 mg STAT ONE Administration Morphine Sulfate Confirm 09/08/18 17:55 Morphine Sulfate 4 Mg Inj Administered 09/08/18 17:56 Dose 4 mg .ROUTE .STK-MED ONE Ondansetron HCl 4 mg 09/08/18 17:51 09/08/18 17:58 Zofran 4 Mg/2 Ml Vial IV 09/08/18 17:52 4 mg STAT ONE Administration Ondansetron HCl Confirm 09/08/18 17:54 Zofran 4 Mg/2 Ml Vial Administered 09/08/18 17:55 Dose 4 mg .ROUTE .STK-MED ONE Lab/Rad Data: Laboratory Result Diagrams 09/08/18 17:25 09/08/18 17:25 Laboratory Results 09/08/18 09/08/18 09/08/18 Range/Units 18:20 18:20 17:25 WBC (4.0-10.5) K/mm3 RBC (4.1-5.6) M/mm3 Hgb (12.5-18.0) gm/dl Hct (42-50) % MCV (78-100) fl MCH (26-32) pg MCHC (32-36) g/dl RDW (11.5-14.0) % Plt Count (150-450) K/mm3 MPV (6-9.5) fl Gran % (36.0-66.0) % Eos # (Auto) (0-0.5) Absolute Lymphs (auto) (1.0-4.6) Absolute Monos (auto) (0.0-1.3) Lymphocytes % (24.0-44.0) % Monocytes % (0.0-12.0) % Eosinophils % (0.00-5.0) % Basophils % (0.0-0.4) % Absolute Granulocytes (1.4-6.9) Basophils # (0-0.4) Sodium 141 (137-145) mmol/L Potassium 3.8 (3.5-5.1) mmol/L Chloride 105 (98-107) mmol/L Carbon Dioxide 24 (22-30) mmol/L Anion Gap 15.4 H (5-15) MEQ/L BUN 12 (9-20) mg/dL Creatinine 0.63 L (0.66-1.25) mg/dL Estimated GFR > 60.0 ML/MIN Glucose 95 (74-106) mg/dL Calcium 9.4 (8.4-10.2) mg/dL Total Bilirubin 0.40 (0.2-1.3) mg/dL AST 26 (17-59) U/L ALT 31 (0-50) U/L Alkaline Phosphatase 106 (38-126) U/L Serum Total Protein 7.6 (6.3-8.2) g/dL Albumin 4.3 (3.5-5.0) g/dL Urine Color YELLOW (YELLOW) Urine Appearance CLEAR (CLEAR) Urine pH 6.0 (5-6) Ur Specific Larose 1.009 (1.005-1.025) Urine Protein NEGATIVE (Negative) Urine Ketones NEGATIVE (NEGATIVE) Urine Blood NEGATIVE (0-5) Claudio/ul Urine Nitrite NEGATIVE (NEGATIVE) Urine Bilirubin NEGATIVE (NEGATIVE) Urine Urobilinogen NEGATIVE (0-1) mg/dL Ur Leukocyte Esterase NEGATIVE (NEGATIVE) Urine WBC (Auto) NONE (0-5) /HPF Urine RBC (Auto) 0-2 (0-2) /HPF U Epithel Cells (Auto) NONE (FEW) /HPF Urine Bacteria (Auto) NONE (NEGATIVE) /HPF Urine Mucus (Auto) SLIGHT (NEGATIVE) /HPF Urine Culture Reflexed NO (NO) Urine Glucose NEGATIVE (NEGATIVE) mg/dL Urine Opiates Level POSITIVE (NEGATIVE) Ur Methadone NEGATIVE (NEGATIVE) Urine Barbiturates NEGATIVE (NEGATIVE) Ur Phencyclidine (PCP) NEGATIVE (NEGATIVE) Urine Amphetamine NEGATIVE (NEGATIVE) U Benzodiazepine Level NEGATIVE (NEGATIVE) Urine Cocaine NEGATIVE (NEGATIVE) Urine Marijuana (THC) NEGATIVE (NEGATIVE) 09/08/18 Range/Units 17:25 WBC 14.7 H (4.0-10.5) K/mm3 RBC 4.66 (4.1-5.6) M/mm3 Hgb 14.7 (12.5-18.0) gm/dl Hct 43.6 (42-50) % MCV 93.6 (78-100) fl MCH 31.5 (26-32) pg MCHC 33.7 (32-36) g/dl RDW 13.6 (11.5-14.0) % Plt Count 250 (150-450) K/mm3 MPV 9.4 (6-9.5) fl Gran % 84.4 H (36.0-66.0) % Eos # (Auto) 0.05 (0-0.5) Absolute Lymphs (auto) 1.51 (1.0-4.6) Absolute Monos (auto) 0.71 (0.0-1.3) Lymphocytes % 10.3 L (24.0-44.0) % Monocytes % 4.8 (0.0-12.0) % Eosinophils % 0.3 (0.00-5.0) % Basophils % 0.2 (0.0-0.4) % Absolute Granulocytes 12.41 H (1.4-6.9) Basophils # 0.03 (0-0.4) Sodium (137-145) mmol/L Potassium (3.5-5.1) mmol/L Chloride (98-107) mmol/L Carbon Dioxide (22-30) mmol/L Anion Gap (5-15) MEQ/L BUN (9-20) mg/dL Creatinine (0.66-1.25) mg/dL Estimated GFR ML/MIN Glucose (74-106) mg/dL Calcium (8.4-10.2) mg/dL Total Bilirubin (0.2-1.3) mg/dL AST (17-59) U/L ALT (0-50) U/L Alkaline Phosphatase (38-126) U/L Serum Total Protein (6.3-8.2) g/dL Albumin (3.5-5.0) g/dL Urine Color (YELLOW) Urine Appearance (CLEAR) Urine pH (5-6) Ur Specific Larose (1.005-1.025) Urine Protein (Negative) Urine Ketones (NEGATIVE) Urine Blood (0-5) Claudio/ul Urine Nitrite (NEGATIVE) Urine Bilirubin (NEGATIVE) Urine Urobilinogen (0-1) mg/dL Ur Leukocyte Esterase (NEGATIVE) Urine WBC (Auto) (0-5) /HPF Urine RBC (Auto) (0-2) /HPF U Epithel Cells (Auto) (FEW) /HPF Urine Bacteria (Auto) (NEGATIVE) /HPF Urine Mucus (Auto) (NEGATIVE) /HPF Urine Culture Reflexed (NO) Urine Glucose (NEGATIVE) mg/dL Urine Opiates Level (NEGATIVE) Ur Methadone (NEGATIVE) Urine Barbiturates (NEGATIVE) Ur Phencyclidine (PCP) (NEGATIVE) Urine Amphetamine (NEGATIVE) U Benzodiazepine Level (NEGATIVE) Urine Cocaine (NEGATIVE) Urine Marijuana (THC) (NEGATIVE) - Progress Progress: improved <ARIEL CORTES - Last Filed: 09/08/18 18:55> - Progress Will see patient in: office Counseled pt/family regarding: need for follow-up <KRUNAL DRAPER - Last Filed: 09/08/18 20:49> - Progress Progress Note: 09/08/18 18:48 Patient's blood pressure improved after hydralazine 10 mg IV. Patient also given morphine 4 mg of Zofran 4 mg for headache. Patient's CBC CMP essentially normal urinalysis normal. Patient will be also given Zestoretic 10/325 one orally and will write for a prescription for Zestoretic and 325 one orally daily. As well as a small amount of Ida for pain. Patient is to followup with his family . (ARIEL COTRES) Pt had CT of abdomen and pelvis secondary to pain and vomiting. The CT showed non obstructive kidney stones, fatty liver, and inguinal hernia. Pt was advised to take Tylenol and Ibuprofen for headache, and alternate them. Cold compress will help as well. Pt asked for a PCP list and that will be provided for him. 09/08/18 20:46 (KRUNAL DRAPER) - Departure Departure Disposition: Home Critical Care Time: No <ARIEL CORTES - Last Filed: 09/08/18 18:55> <KRUNAL DRAPER - Last Filed: 09/08/18 20:49> - Departure Clinical Impression: Headache Qualifiers: Headache type: unspecified Headache chronicity pattern: acute headache Intractability: not intractable Qualified Code(s): R51 - Headache Hypertension Qualifiers: Hypertension type: unspecified Qualified Code(s): I10 - Essential (primary) hypertension Condition: Fair Referrals: ARIEL MIDDLETON MD [Primary Care Provider] - Additional Instructions: Return home rest plenty of fluids. Zestoretic 10/12.5 mg one orally daily #14. Followup with your family (call and make an appointment). Ida as prescribed for pain, Return for acute distress severe symptoms or for any problems Forms: Providers Accepting New PT'S Prescriptions: Hydrocodone/APAP 5-325 Tab^^^ [Ida 5-325 Tablet^^^] 1 tab PO Q6HPRN PRN #10 tablet MDD 6 PRN Reason: head pain Lisinopril/Hydrochlorothiazide [Zestoretic 10-12.5 mg Tablet] 1 tab PO DAILY # 14 tablet
[2018-09-08 17:31] LABS: BASOPHIL % 0.2 % (0.0-0.4); Basophil (Absolute #) 0.03 (0-0.4); Eosinophil % 0.3 % (0.00-5.0); Eosinophil (Absolute #) 0.05 (0-0.5); Granulocyte Absolute (ANC) 12.41 (1.4-6.9); Granulocytes % 84.4 % (36.0-66.0); Hematocrit 43.6 % (42-50); Hemoglobin 14.7 gm/dl (12.5-18.0); Lymphocyte (Absolute #) 1.51 (1.0-4.6); Lymphocytes % 10.3 % (24.0-44.0); Mean Cell Volume 93.6 fl (78-100); Mean Corpuscular Hemoglobin 31.5 pg (26-32); Mean Corpuscular Hgb Concent. 33.7 g/dl (32-36); Mean Platelet Volume 9.4 fl (6-9.5); Monocyte (Absolute #) 0.71 (0.0-1.3); Monocytes % 4.8 % (0.0-12.0); Platelet Count 250 K/mm3 (150-450); Red Blood Count 4.66 M/mm3 (4.1-5.6); Red Cell Distribution Width 13.6 % (11.5-14.0); White Blood Count 14.7 K/mm3 (4.0-10.5)
[2018-09-08 17:42] LABS: ALBUMIN 4.3 g/dL (3.5-5.0); ALKALINE PHOSPHATASE 106 U/L (38-126); ANION GAP 15.4 MEQ/L (5-15); BLOOD UREA NITROGEN 12 mg/dL (9-20); CHLORIDE 105 mmol/L (98-107); Calcium 9.4 mg/dL (8.4-10.2); Carbon Dioxide 24 mmol/L (22-30); Creatinine 1 0.63 mg/dL (0.66-1.25); Glucose 95 mg/dL (74-106); Potassium 3.8 mmol/L (3.5-5.1); SGOT/AST 26 U/L (17-59); SGPT/ALT 31 U/L (0-50); SODIUM 141 mmol/L (137-145); Total Protein 7.6 g/dL (6.3-8.2)
[2018-09-08] MEDS ORDERED: MORPHINE SULFATE 4 MG INJ IV ONE (17:51)
[2018-09-08] MEDS ORDERED: Zofran 4 MG/2 ML VIAL IV ONE (17:51)
[2018-09-08] MEDS ORDERED: Zofran 4 MG/2 ML VIAL ONE (17:54)
[2018-09-08] MEDS ORDERED: MORPHINE SULFATE 4 MG INJ ONE (17:55)
[2018-09-08] MEDS ORDERED: APRESOLINE 20 MG/ML INJ IV ONE (18:20)
[2018-09-08] MEDS ORDERED: APRESOLINE 20 MG/ML INJ ONE (18:27)
[2018-09-08 18:31] LABS: Appearance CLEAR (CLEAR); Bilirubin NEGATIVE (NEGATIVE); Blood NEGATIVE Ery/ul (0-5); Glucose NEGATIVE (NEGATIVE); Ketones NEGATIVE (NEGATIVE); Leukocyte Esterase NEGATIVE (NEGATIVE); Mucus SLIGHT /HPF (NEGATIVE); Nitrite NEGATIVE (NEGATIVE); Protein,Urine Dip NEGATIVE (Negative); RBC 0-2 /HPF (0-2); Specific Gravity 1.009 (1.005-1.025); Urobilinogen NEGATIVE mg/dL (0-1)
[2018-09-08] MEDS ORDERED: Zestril 10 MG*** 10 MG, hydroDIURIL 25 MG*** 12.5 MG PO STA ×2 (18:46)
[2018-09-08 18:47] LABS: Amphetamine,Urine NEGATIVE (NEGATIVE); Barbiturate,Urine NEGATIVE (NEGATIVE); Benzodiazepine,Urine NEGATIVE (NEGATIVE); Cocaine,Urine NEGATIVE (NEGATIVE); Methadone,Urine NEGATIVE (NEGATIVE); Opiate,Urine POSITIVE (NEGATIVE); PCP,Urine NEGATIVE (NEGATIVE); THC,Urine NEGATIVE (NEGATIVE)
[2018-09-08] MEDS ORDERED: Apresoline 25 MG TABLET PO STA (21:14)
[2018-09-08 21:34] VITALS: BP 164/97; PULSE 89; O2SAT 99
--- NOTE | 2018-09-09 08:37 | XRAY ---
Indication: Abdomen pain. Nausea. Multiple contiguous axial images obtained through the abdomen and pelvis without contrast as ordered. Comparison: April 28, 2015. Lung bases demonstrates new lingula subsegmental atelectasis/scarring. No infiltrate or effusion. Heart is not enlarged. Noncontrasted stomach and bowel loops appear nonobstructed. Normal appendix. No free fluid/air. New nonobstructing punctate calculus in each kidney. Stable cholecystectomy and mild fatty liver. Remaining liver, pancreas, spleen, adrenal glands, kidneys, ureters, bladder, and aorta appear unremarkable for noncontrast exam. Osseous structures intact again with mild degenerative changes throughout the spine. Stable fatty left inguinal hernia. Impression: 1. New nonobstructing bilateral renal micro-calculus. 2. Stable fatty liver and fatty left inguinal hernia. 3. Remaining CT abdomen/pelvis without contrast exam is negative. CT DI 21.99
--- NOTE | 2018-09-09 08:38 | XRAY ---
Indication: Headache. High blood pressure. Multiple contiguous axial images obtained through the head without contrast. Comparison: None Normal appearing brain parenchyma, ventricles, and bony calvarium. Visualized paranasal sinuses and mastoid air cells are clear. Impression: Normal CT head without contrast exam. CT DI 71.08
== END 2018-09-08 21:34 | disposition home or self-care (01) ==
LOC: ED 16:54
DX: R51 Headache (principal); I10 Essential (primary) hypertension; M54.2 Cervicalgia
CPT/HCPCS: 36000; 36415; 70450; 74176; 80053; 80307; 81001; 85025; 93005; 96374; 96375; 99284; J0360; J2270; J2405; A9270-GY